=== PATIENT | male | born 1940 | race Caucasian/White ===

== ENCOUNTER 2024-05-25 09:59 | Outpatient (CLI) | payer OTHER, SELFPAY ==
--- NOTE | 2024-05-25 10:08 | USCV_ITS ---
Constantin Dawson Age: 84 Gender: M : 1940 Exam Date: 05/25/2024 10:11 Ordering Phys: Santi Shepard Technologist: ZACHARY Exam Location: [facility] [place] Indication: Vision loss, memory loss Risk Factors: Previous Vascular Surgery: Right Brachial BP: / Left Brachial BP: / Right Left Velocity (cm/s) Spectral Plaque Velocity (cm/s) Spectral Plaque Syst/Diast Broadening Syst/Diast Broadening 68.80/ 18.30 Prox CCA 101.90/ 18.30 75.90/ 21.80 Mid CCA 129.90/ 24.30 85.90/ 24.30 Distal CCA 113.30/ 24.20 82.90/ 28.30 Prox ICA 85.20 / 21.60 159.20/61.20 Mid ICA 75.40 / 26.70 164.70/43.00 Distal ICA 67.00 / 19.00 108.30 ECA 79.70 1.90 ICA/CCA 0.80 Antegrade Vertebral Antegrade 22.60/ 10.10 cm/s 38.00/ 11.50 cm/s Bi Subclavian Tri 94.70 92.80 FINDINGS Comparison: none available. Diffuse bilateral scattered calcified plaque and intimal thickening throughout the common carotid arteries and extending through the bifurcation. Mild elevation of right ICA velocity. Antegrade vertebal arteries. CONCLUSIONS Right ICA stenosis 50-69%. Left ICA stenosis < 50%. Dr. Bijal Vieyra DO (Electronically Signed) Final Date: 26 May 2024 07:45 S
== END 2024-05-25 10:00 | disposition home or self-care (01) ==
LOC: RAD 10:03
PROVIDERS: Visit Provider Family Medicine
DX: H53.121 Transient visual loss, right eye (principal); I65.23 Occlusion and stenosis of bilateral carotid arteries; I65.03 Occlusion and stenosis of bilateral vertebral arteries; E78.5 Hyperlipidemia, unspecified; I10 Essential (primary) hypertension
CPT/HCPCS: 93880

== ENCOUNTER 2025-01-04 16:05 | Observation (INO) | payer MEDICARE, OTHER, SELFPAY ==
[2025-01-04 16:15] VITALS: BP 102/57; PULSE 67; RESP 18; TEMP 36.6; O2SAT 99
--- NOTE | 2025-01-04 16:27 | XRR_ITS ---
PROCEDURE INFORMATION: Exam: XR Chest Exam date and time: 01/04/2025 4:35 PM Age: 84 years old Clinical indication: Other: Weakness TECHNIQUE: Imaging protocol: Radiologic exam of the chest. Views: 1 view. COMPARISON: No relevant prior studies available. FINDINGS: Tubes, catheters and devices: There is intact pacemaker hardware. Lungs: Unremarkable. No consolidation. Pleural spaces: Unremarkable. No pleural effusion. No pneumothorax. Heart/Mediastinum: Borderline cardiomegaly. Prior CABG. Bones/joints: There are sternal sutures. No acute findings. XR/XR chest 1V portable [id number] IMPRESSION: No acute findings.
--- NOTE | 2025-01-04 16:27 | ECG_ITS ---
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 Measurements Intervals [place] Rate: 84 P: 0 RI: 0 QRS: 261 QRSD: 201 T: 83 QT: 472 QTc: 560 Interpretive Statements ELECTRONIC VENTRICULAR PACEMAKER No previous ECG available for comparison Electronically Signed On 01-04-2025 22:23:38 CDT by Tyshawn Monreal M.D. [email or web address]
[2025-01-04 17:23] LABS: Basophils % 0.1 %; Eosinophils % 0.2 %; Hematocrit 27.4 % (37-53); Lymphocytes # 0.9 10^3/uL (0.8-4.8); Lymphocytes % 11.1 %; Mean Corpuscular HGB Conc 31.4 g/dL (30-55); Mean Corpuscular Hemoglobin 31.3 pg (27-33); Mean Corpuscular Volume 99.6 fl (82-101); Mean Platelet Volume 9.4 fL (7.4-10.4); Monocytes # 0.7 10^3/uL (0.2-0.9); Monocytes % 8.2 %; Neutrophils % 79.9 %; Nucleated Red Blood Cells % 0 %; Platelet Count 183 10^3/cmm (157-399); Red Blood Count 2.75 10^6/uL (3.85-5.65); Red Cell Distribution Width 14.1 % (12.1-15.1); White Blood Count 8.27 10^3/uL (3.29-11.43)
[2025-01-04 17:31] LABS: Alanine Aminotransferase 11 U/L (0-41); Alkaline Phosphatase 59 U/L (40-130); Anion Gap 14.2 (5-19); Aspartate Amino Transferase 19 U/L (0-40); Blood Urea Nitrogen 31 mg/dL (8-23); Calcium 9.1 mg/dL (8.5-10.5); Carbon Dioxide 23 mmol/L (22-29); Chloride 105 mmol/L (98-107); Creatinine Clr Calc Pharmacy 81.9889; Globulin 2.1 g/dL (1.3-4.6); Glucose 119 mg/dL (65-115); Lipase 33 U/L (13-60); Magnesium 2.2 mg/dL (1.7-2.3); Osmolality Calculated 294 mOsm/kg (285-295); Potassium 4.2 mmol/L (3.5-5.1); Sodium 138 mmol/L (136-145); Total Bilirubin 0.7 mg/dL (0.15-1.2); Total Protein 6.1 g/dL (6.6-8.7)
[2025-01-04 18:08] LABS: Add Urine Microscopic? NO
[2025-01-04 18:13] LABS: Bilirubin Urine Neg (Negative); Blood Urine Neg (Negative); Glucose Urine UA 4+ (Normal); Ketones Urine Negative (Negative); Leukocyte Esterase Urine Negative (Negative); Nitrate Urine Negative (Negative); Protein Urine Neg (Negative); Urine Appearance Clear (CLEAR); Urine Color Yellow (Yellow); Urobilinogen Urine Norm (Negative); pH Urine 5 (5-7)
[2025-01-04 18:14] LABS: Charge for UA Resulting for Rev
--- NOTE | 2025-01-04 19:10 | CTR_ITS ---
PROCEDURE INFORMATION: Exam: CT Head Without Contrast Exam date and time: 01/04/2025 7:38 PM Age: 84 years old Clinical indication: Other: General weakness TECHNIQUE: Imaging protocol: Computed tomography of the head without contrast. Radiation optimization: All CT scans at this facility use at least one of these dose optimization techniques: automated exposure control; mA and/or kV adjustment per patient size (includes targeted exams where dose is matched to clinical indication); or iterative reconstruction. COMPARISON: No relevant prior studies available. RADIATION DOSE METRICS: Total DLP (mGy-cm): 1180.68 FINDINGS: Brain: No intracranial hemorrhage. There is global parenchymal volume loss. Periventricular white matter hypoattenuation is nonspecific but most likely due to small vessel disease. No mass effect or midline shift. Chronic bilateral subinsular infarcts. Ill-defined focal hypoattenuation within the left paramedian magi (see for example series 4, image 14). Additional age-indeterminate hypoattenuation within the left bro radiata. Cerebral ventricles: Prominent ventricles likely secondary to volume loss. Paranasal sinuses: Visualized paranasal sinuses are clear. Mastoid air cells: The mastoid air cells are clear. Bones: The calvarium is intact. Soft tissues: Soft tissues are unremarkable as visualized. CT/CT head wo con* [id number] IMPRESSION: 1. Ill-defined focal hypoattenuation within the left paramedian magi. While this finding may be artifactual, it raises suspicion for a possible pontine infarct. Consider MRI of the brain if there is high clinical suspicion for acute ischemia. 2. Additional age-indeterminate hypoattenuation within the left bro radiata, which may represent chronic microvascular ischemic changes. Further characterization may be performed with above recommended MRI. 3. Chronic bilateral subinsular infarcts.
--- NOTE | 2025-01-04 19:10 | W.ED.WEAKNES ---
HPI - Weakness General: Chief complaint: Weakness Stated complaint: sent from dr walker, infection unsure Time Seen by Provider: 01/04/25 19:04 Source: patient Mode of arrival: ambulatory Limitations: no limitations History of Present Illness: 84-year-old male who states over last 3 days has been having increasing weakness. He states he just felt very fatigued today has been having a hard time walking. He has had subjective fevers at home denies any pain anywhere denies any vomiting or diarrhea denies any slurred speech or chest pain. Associated symptoms: Denies chest pain, chills, fever(s), headache(s), nausea or vomiting Review of Systems Const: Reports: fatigue and malaise; Denies: fever(s), chills, body aches or change in appetite ENMT: Denies: throat pain or dental pain Card: Denies: chest pain Resp: Denies: dyspnea GI: Denies: abdominal pain, nausea, vomiting or diarrhea Musc: Denies: neck pain or back pain Skin/Breast: Denies: rash Neuro: Denies: headache(s) PFSH ED PFSH: Social History Smoking and tobacco/nicotine status: never used tobacco/nicotine Physical Exam Const: COMMON NORMALS: patient oriented x3 HENMT: COMMON NORMALS: normocephalic and atraumatic HEAD & SCALP: normocephalic and atraumatic Eye: COMMON NORMALS: Equal, round and reactive pupils present and EOMs intact bilaterally PUPIL: Yes Equal, round and reactive pupils present Neck/C-Spine: COMMON NORMALS: full ROM and supple Chest: COMMONS NORMALS: normal inspection of the chest and normal palpation of entire chest wall Resp: COMMON NORMALS: normal respiratory effort, No retractions, No use of accessory muscles and clear to auscultation bilaterally AUSCULTATION: clear to auscultation bilaterally Cardio: COMMON NORMALS: regular rate, regular rhythm and No murmurs present (Cardio) RATE: regular rate RHYTHM: regular rhythm GI: COMMON NORMALS: Normal to inspection, nondistended, normoactive bowel sounds present, Soft to palpation, non-tender and no masses PALPATION: Yes Soft to palpation Extremity: COMMON NORMALS: normal to inspection and full ROM Neuro: COMMON NORMALS: patient oriented x3, moves all extremities and no focal motor deficits Psych: COMMON NORMALS: mental status grossly normal, Normal thought process present and cooperative THOUGHT PROCESS: Normal thought process present Skin: COMMON NORMALS: no rashes or lesions noted and no wounds GENERAL SKIN EXAM: no rashes or lesions noted Course Vital Signs: Vital signs: Vital Signs Temperature 97.8 F 01/04/25 16:15 Pulse Rate 67 01/04/25 16:15 Respiratory Rate 18 01/04/25 16:15 Blood Pressure 102/57 01/04/25 16:15 Pulse Oximetry 99 01/04/25 16:15 Oxygen Delivery Me thod Room Air 01/04/25 16:15 MDM - Weakness Medical Decision Making Patient presents here with weakness some difficulties walking. Head CT showed a possible subacute stroke no signs of infection I spoke to hospitalist will admit at this time for observation. Medical Records I reviewed the patient's medical records. Lab Data I reviewed the patient's lab results. 01/04/25 17:02 01/04/25 17:02 Radiology Impressions Chest X-Ray 01/04/25 16:27 IMPRESSION: No acute findings. Head CT 01/04/25 19:10 IMPRESSION: 1. Ill-defined focal hypoattenuation within the left paramedian magi. While this finding may be artifactual, it raises suspicion for a possible pontine infarct. Consider MRI of the brain if there is high clinical suspicion for acute ischemia. 2. Additional age-indeterminate hypoattenuation within the left bro radiata, which may represent chronic microvascular ischemic changes. Further characterization may be performed with above recommended MRI. 3. Chronic bilateral subinsular infarcts. ADDENDUM: 01/04/252014 COMMENT: THIS REPORT CONTAINS FINDINGS THAT MAY BE CRITICAL TO PATIENT CARE. The exam findings were verbally communicated by me to ROBSON BAUTISTA via telephone conference at 8:12 PM CDT on 01/04/2025. The findings were acknowledged and understood. Laboratory Results WBC 8.27 10^3/uL (3.29-11.43) 01/04/25 17:02 RBC 2.75 10^6/uL (3.85-5.65) L 01/04/25 17:02 Hgb 8.60 g/dL (11.27-16.99) L 01/04/25 17:02 Hct 27.4 % (37-53) L 01/04/25 17:02 MCV 99.6 fl (82-101) 01/04/25 17:02 MCH 31.3 pg (27-33) 01/04/25 17:02 MCHC 31.4 g/dL (30-55) 01/04/25 17:02 RDW 14.1 % (12.1-15.1) 01/04/25 17:02 Plt Count 183 10^3/cmm (157-399) 01/04/25 17:02 MPV 9.4 fL (7.4-10.4) 01/04/25 17:02 Neut % (Auto) 79.9 % 01/04/25 17:02 Lymph % (Auto) 11.1 % 01/04/25 17:02 Long % (Auto) 8.2 % 01/04/25 17:02 Eos % (Auto) 0.2 % 01/04/25 17:02 Baso % (Auto) 0.1 % 01/04/25 17:02 Neut # (Auto) 6.60 10^3/uL (1.8-7.7) 01/04/25 17:02 Lymph # (Auto) 0.9 10^3/uL (0.8-4.8) 01/04/25 17:02 Long # (Auto) 0.7 10^3/uL (0.2-0.9) 01/04/25 17:02 Eos # (Auto) 0.0 10^3/uL (0.0-0.8) 01/04/25 17:02 Baso # (Auto) 0.0 10^3/uL (0.0-0.1) 01/04/25 17:02 Nucleated RBC % (auto) 0 % 01/04/25 17:02 Nucleated RBCs # 0.0 /100WBC 01/04/25 17:02 Sodium 138 mmol/L (136-145) 01/04/25 17:02 Potassium 4.2 mmol/L (3.5-5.1) 01/04/25 17:02 Chloride 105 mmol/L (98-107) 01/04/25 17:02 Carbon Dioxide 23 mmol/L (22-29) 01/04/25 17:02 Anion Gap 14.2 (5-19) 01/04/25 17:02 BUN 31 mg/dL (8-23) H 01/04/25 17:02 Creatinine 0.8 mg/dL (0.7-1.2) 01/04/25 17:02 GFR Calculation Not Reportable 01/04/25 17:02 Glucose 119 mg/dL (65-115) H 01/04/25 17:02 Calculated Osmolality 294 mOsm/kg (285-295) 01/04/25 17:02 Lactic Acid 2.0 mmol/L (0.5-2.2) 01/04/25 17:02 Calcium 9.1 mg/dL (8.5-10.5) 01/04/25 17:02 Magnesium 2.2 mg/dL (1.7-2.3) 01/04/25 17:02 Total Bilirubin 0.7 mg/dL (0.15-1.2) 01/04/25 17:02 AST 19 U/L (0-40) 01/04/25 17:02 ALT 11 U/L (0-41) 01/04/25 17:02 Alkaline Phosphatase 59 U/L (40-130) 01/04/25 17:02 Total Protein 6.1 g/dL (6.6-8.7) L 01/04/25 17:02 Albumin 4.0 g/dL (3.5-5.2) 01/04/25 17:02 Globulin 2.1 g/dL (1.3-4.6) 01/04/25 17:02 Lipase 33 U/L (13-60) 01/04/25 17:02 TSH 8.59 uIU/mL (0.27-4.20) H 01/04/25 17:02 Urine Color Yellow (Yellow) 01/04/25 17:10 Urine Appearance Clear (CLEAR) 01/04/25 17:10 Urine pH 5 (5-7) 01/04/25 17:10 Ur Specific [place] 1.020 (1.005-1.030) 01/04/25 17:10 Urine Protein Neg (Negative) 01/04/25 17:10 Urine Glucose (UA) 4+ (Normal) H 01/04/25 17:10 Urine Ketones Negative (Negative) 01/04/25 17:10 Urine Blood Neg (Negative) 01/04/25 17:10 Urine Nitrate Negative (Negative) 01/04/25 17:10 Urine Bilirubin Neg (Negative) 01/04/25 17:10 Urine Urobilinogen Norm mg/dL (Negative) 01/04/25 17:10 Ur Leukocyte Esterase Negative (Negative) 01/04/25 17:10 Amorphous Sediment Not Reportable 01/04/25 17:10 All radiology interpretation(s) finalized by discharge Discharge Plan Discharge Patient Disposition: Admitted As Inpatient Clinical Impression: Generalized weakness Condition: Stable Coding Level of Care Code ED [place] for Chg Fwd Related Data Home Medications ?Medication ?Instructions ?Recorded ?Confirmed clopidogrel 75 mg tablet 75 mg PO DAILY 01/04/25 01/04/25 donepezil 10 mg tablet 10 mg PO DAILY 01/04/25 01/04/25 empagliflozin 10 mg tablet 10 mg PO DAILY 01/04/25 01/04/25 (Jardiance) ezetimibe 10 mg-simvastatin 80 mg 1 tab PO DAILY 01/04/25 01/04/25 tablet furosemide 40 mg tablet 40 mg PO DAILY 01/04/25 01/04/25 levothyroxine 75 mcg capsule 75 mcg PO DAILY 01/04/25 01/04/25 lisinopril 2.5 mg tablet 2.5 mg PO DAILY 01/04/25 01/04/25 metoprolol succinate 25 mg 25 mg PO DAILY 01/04/25 01/04/25 tablet,extended release 24 hr nystatin 100,000 unit/gram topical 1 applic topical DAILY 01/04/25 01/04/25 ointment spironolactone 25 mg tablet 25 mg PO DAILY 01/04/25 01/04/25 Allergies Allergy/AdvReac Type Severity Reaction Status Date / Time No Known Allergies Allergy Verified 01/04/25 16:18
[2025-01-04 19:42] LABS: Thyroid Stimulating Hormone 8.59 uIU/mL (0.27-4.20)
[2025-01-04 20:30] VITALS: BP 103/56; PULSE 77; RESP 18; O2SAT 100
[2025-01-04 21:00] VITALS: BP 97/53; PULSE 67; RESP 20; O2SAT 99
[2025-01-04 21:30] VITALS: BP 119/58; PULSE 86; O2SAT 100
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
[2025-01-04 22:13] VITALS: BP 128/94; PULSE 70; O2SAT 100
--- NOTE | 2025-01-04 22:45 | USCV_ITS ---
Constantin Dawson Age: 84 Gender: M : 1940 Exam Date: 01/04/2025 23:46 Ordering Phys: Dhiraj Field MD Technologist: APOLLO Exam Location: [facility] [place] Indication: cva history of CAD s/p CABG 1994, pacer, HTN BP: 115 / 52 HR: 58 Rhythm: Paced rhythm with atrial fibrillation Technical Quality: Adequate MEASUREMENTS (Male / Female) Normal Values 2D ECHO LV Diastolic Diameter PLAX 3.9 cm 4.2 - 5.9 / 3.9 - 5.3 cm IVS Diastolic Thickness 2.2 cm 0.6 - 1.0 / 0.6 - 0.9 cm IVS Systolic Thickness 2.5 cm LVPW Diastolic Thickness 2.0 cm 0.6 - 1.0 / 0.6 - 0.9 cm LVPW Systolic Thickness 2.4 cm LVOT Diameter 2.0 cm LV Ejection Fraction 2D Teich 61.2 % LV Ejection Fraction MOD 4C 60.2 % LV Ejection Fraction MOD 2C 44.4 % LV Ejection Fraction 2C AL 47.8 % LA Diameter 3.3 cm LA Sys Volume AL 176.7 cm cubed LA Sys Volume Index AL 75.8 cm cubed/m squared Aorta at Sinotubular Diameter 3.0 cm IVC Diameter 1.3 cm M-MODE LA Ao Ratio MM 1.4 AV Cusp Separation MM 1.8 cm DOPPLER AV Peak Velocity 153.0 cm/s LVOT Peak Velocity 79.0 cm/s AV Area Cont Eq vti 2.2 cm squared AV Area Cont Eq pk 1.7 cm squared MV Peak Velocity 121.0 cm/s MV Area PHT 2.8 cm squared Mitral E to A Ratio 0.0 TV Peak Velocity 314.0 cm/s TR Peak Velocity 322.0 cm/s TR Peak Gradient 41.5 mmHg TV Peak E Velocity 54.0 cm/s PV Peak Velocity 98.0 cm/s FINDINGS Left Ventricle Normal left ventricular size and systolic function, EF 60%.moderate left ventricular hypertrophy. No regional wall motion abnormalities. Right Ventricle Catheter/pacemaker wire in the right ventricular cavity. Right Atrium Catheter/pacemaker wire in the right atrial cavity. Left Atrium Mildly increased left atrial size. Mitral Valve Mild mitral valve regurgitation. Aortic Valve Thickened aortic valve. Tricuspid Valve [id number] tricuspid valve regurgitation. Estimated pulmonary artery peak systolic pressure 54 mmHg Pulmonic Valve No gross abnormalities noted Pericardium No pericardial effusion. Aorta Normal aortic annulus size. IVC Normal inferior vena cava. CONCLUSIONS Normal left ventricular size and systolic function, EF 60%.moderate left ventricular hypertrophy. No regional wall motion abnormalities. Kfuh-[id number]-emhqhzff tricuspid valve regurgitation. Estimated pulmonary artery peak systolic pressure 54 mmHg. Thickened aortic valve. Mild mitral valve regurgitation. Mildly increased left atrial size. There is no pericardial effusion. There are no intracardiac masses. No similar previous studies are available for comparison Dr Jeanmarie Schwab MD [facility] (Electronically Signed) Final Date: 05 January 2025 17:21 S
[2025-01-04 22:54] VITALS: BP 115/52; PULSE 82; RESP 17; TEMP 36.8; O2SAT 100; BMI 34.5
[2025-01-04 22:56] VITALS: BMI 32.5
[2025-01-04 23:21] LABS: Chol HDL Ratio 2.95 mg/dL (1.0-5.00); Cholesterol 124 mg/dL (0-200); HDL Cholesterol 42 mg/dL (60-100); LDL Cholesterol Calculated 65 mg/dL (50-129); LDL HDL Ratio 1.55 RATIO (0.00-3.22); Triglycerides 84 mg/dL (0-150)
[2025-01-04 23:23] LABS: Estmated Average Glucose 114; Hemoglobin A1C 5.6 % (4.0-6.0)
[2025-01-04 23:53] LABS: Vitamin B12 298 pg/mL (232-1245)
[2025-01-05 01:35] VITALS: BP 95/46; PULSE 61; RESP 16; TEMP 36.5; O2SAT 95
[2025-01-05 04:00] VITALS: BP 122/71; PULSE 72; RESP 18; TEMP 36.7; O2SAT 100
[2025-01-05 05:53] LABS: Basophils % 0.1 %; Eosinophils # 0.1 10^3/uL (0.0-0.8); Eosinophils % 0.9 %; Hematocrit 24.3 % (37-53); Lymphocytes # 1.1 10^3/uL (0.8-4.8); Lymphocytes % 15.7 %; Mean Corpuscular HGB Conc 31.7 g/dL (30-55); Mean Corpuscular Hemoglobin 31.2 pg (27-33); Mean Corpuscular Volume 98.4 fl (82-101); Mean Platelet Volume 9.5 fL (7.4-10.4); Monocytes # 0.7 10^3/uL (0.2-0.9); Monocytes % 10.6 %; Neutrophils # 4.99 10^3/uL (1.8-7.7); Neutrophils % 72.4 %; Nucleated Red Blood Cells % 0 %; Platelet Count 166 10^3/cmm (157-399); Red Blood Count 2.47 10^6/uL (3.85-5.65); White Blood Count 6.89 10^3/uL (3.29-11.43)
[2025-01-05 05:59] VITALS: BMI 32.5
[2025-01-05 06:14] LABS: Anion Gap 15.1 (5-19); Blood Urea Nitrogen 31 mg/dL (8-23); Calcium 8.8 mg/dL (8.5-10.5); Carbon Dioxide 23 mmol/L (22-29); Chloride 104 mmol/L (98-107); Creatinine Clr Calc Pharmacy 81.9889; Glucose 109 mg/dL (65-115); Magnesium 2.2 mg/dL (1.7-2.3); Osmolality Calculated 293 mOsm/kg (285-295); Potassium 4.1 mmol/L (3.5-5.1); Sodium 138 mmol/L (136-145)
[2025-01-05] MEDS: levothyroxine 100 mcg Tablet PO (06:23)
[2025-01-05 07:04] LABS: Glucose Point of Care 129 mg/dL (70-110)
--- NOTE | 2025-01-05 07:48 | PC.PHAR ---
Pts' daughter Rupa sets his medications up weekly. Pt states he has not taken medications in the last couple days. Saturday was the last time he took any daily meds.
[2025-01-05 08:00] VITALS: BP 101/53; PULSE 71; RESP 18; TEMP 36.4; O2SAT 97
[2025-01-05] MEDS: aspirin 81 mg EC Tablet PO (09:01)
[2025-01-05] MEDS: atorvastatin 40 mg Tablet 80 MG PO (09:01)
[2025-01-05] MEDS: sennosides-docusate Tablet 1 TAB PO (09:01)
[2025-01-05] MEDS: clopidogrel 75 mg Tablet PO (09:01)
[2025-01-05] MEDS: donepezil 5 MG Tablet 10 MG PO (09:01)
--- NOTE | 2025-01-05 09:01 | PC.CHAP ---
Pastoral Care Encounter/Spiritual Assessment Type of Contact [] Declined feather trimmer visit [] Patient/Family/Request visit [] Outpatient visit [] Follow-up visit [] Physician referral [] Code/Alert [] Routine visit [] Staff referral [] Actively dying [x] Patient sleeping [] Family support [] [] Out of room [] Palliative care [] [] Receiving care in room [] Pre-surgical visit [] Trauma [] Long length of stay [] ICU visit [] Other: Relational/Emotional Strength [] Patient feels connected with others/family/visitors/staff [] Distress [] Loneliness/isolation [] Abandonment Spirituality of Patient [] Person of Brit [] Attends Sabianist of their Brit [] Believes in Prayer [] Reads Bible or Zoroastrianism materials [] There are Spiritual issues to be addressed Navigation Officer Interventions [] Prayer [] Active listening [] Non-anxious presence [] Spiritual/emotional support [] Crisis/trauma care [] Spiritual counseling [] Bereavement support [] Provided bereavement packet [] Provided Bible/devotional materials [] Provided toy/stuffed animal, coloring book to patient or family member [] Provided Communion [] Anointing/[place] [] Salvation [] Completed spiritual assessment [] Other: Impact on Illness or Injury [] Angry [] Fearful [] Anxious [] Often cries [] Exhaustion [] Unable to work [] Unable to attend cheondoism [] Unable to walk/stand [] Unable to read [] Unable to drive [] Unable to eat/drink [] Unable to sleep [] Unable to be with family [] Patient intubated [] Other: Summary Time spent with patient
[2025-01-05 09:24] LABS: Basophils % 0.3 %; Eosinophils # 0.1 10^3/uL (0.0-0.8); Eosinophils % 0.7 %; Hematocrit 26.8 % (37-53); Lymphocytes # 1.1 10^3/uL (0.8-4.8); Lymphocytes % 15.1 %; Mean Corpuscular HGB Conc 31.7 g/dL (30-55); Mean Corpuscular Hemoglobin 31.6 pg (27-33); Mean Corpuscular Volume 99.6 fl (82-101); Mean Platelet Volume 9.6 fL (7.4-10.4); Monocytes # 0.9 10^3/uL (0.2-0.9); Monocytes % 11.4 %; Neutrophils # 5.47 10^3/uL (1.8-7.7); Neutrophils % 72.1 %; Nucleated Red Blood Cells % 0 %; Platelet Count 183 10^3/cmm (157-399); Red Blood Count 2.69 10^6/uL (3.85-5.65); Red Cell Distribution Width 14.2 % (12.1-15.1); White Blood Count 7.57 10^3/uL (3.29-11.43)
--- NOTE | 2025-01-05 10:15 | PC.NURSE ---
cost coordinator rounds @ 5110- patient states symptoms have resolved and would like to go home, states he doesn't think he had a stroke.
[2025-01-05 11:08] VITALS: BP 103/53; PULSE 66; RESP 20; TEMP 36.5; O2SAT 94
--- NOTE | 2025-01-05 12:57 | P.PN_ITS ---
Subjective 2 Subjective: seen today pt resting in bed says he feels better daughter at bedside Vitals/I&O/Wt Last Vital Signs Temp 97.7 F 01/05/25 11:08 Pulse 66 01/05/25 11:08 Resp 20 H 01/05/25 11:08 BP 103/53 01/05/25 11:08 Pulse Ox 94 01/05/25 11:08 O2 Del Method Room Air 01/05/25 11:08 01/04/25 01/05/25 01/05/25 22:59 06:59 14:59 Intake Total 120 / 120 240 / 240 Balance 120 / 120 240 / 240 Weight last 48 hrs Weight 105.687 kg Weight 105.687 kg Weight 112.309 kg Weight 105.687 kg Physical Exam 2 Narrative: NIH 0 GCS 15 Nonfocal neuroexam Lower extremity no significant edema Distended nontender abdomen Hemodynamically stable Currently room air AO x 4 Daughter at the bedside Pacemaker in place S1, S2 No active clinical distress Able to follow commands Data 01/05/25 08:59 01/05/25 04:52 A&P Assessment and plan (1) CVA (cerebral vascular accident): (2) Generalized weakness: (3) Hx of CABG: (4) Carotid artery disease: (5) HTN (hypertension): Plan Lower extremity weakness NIH 0 at the time of my evaluation Hyperdense sign present on CT head Rule out stroke with MRI head if compatible with his pacemaker Will add aspirin and continue Plavix for at least 20 days then patient may resume his Plavix regimen Add atorvastatin 80 mg Will request echo with bubble study and head MRI Check hemoglobin A1c and lipid panel PT OT and ST I will let him eat he does not have any facial droop or dysarthria He takes Jardiance for underlying CHF he does not have any diagnosis of diabetes Full code Consistent carb diet Patient lives in [facility] and follows up with [facility] 01/05/2025 1. Ill-defined focal hypoattenuation within the left paramedian magi. While this finding may be artifactual, it raises suspicion for a possible pontine infarct. Consider MRI of the brain if there is high clinical suspicion for acute ischemia. 2. Additional age-indeterminate hypoattenuation within the left bro radiata, which may represent chronic microvascular ischemic changes. Further characterization may be performed with above recommended MRI. 3. Chronic bilateral subinsular infarcts. continue asa, plavix echo pending carotid doppler recently done at [facility], pre-lamb results 59-69% right ica pt out of window for tpa, symptoms started saturday f/u with neuro outpatient, discussed with neuro over the phone check hba1c, lipid panel pt/ot PDMP PDMP Reviewed: Not Reviewed Attestations 2 Medical Necessity Statement*: stroke workup Diagnoses CVA (cerebral vascular accident) I63.9 Generalized weakness R53.1 Hx of CABG Z95.1 Carotid artery disease I77.9 HTN (hypertension) I10
[2025-01-05 16:00] VITALS: BP 95/53; PULSE 59; RESP 19; TEMP 36.7; O2SAT 95
[2025-01-05] MEDS: enoxaparin 40 mg/0.4 mL Syringe SUBCUT (16:18)
[2025-01-05 21:41] VITALS: BP 105/65; PULSE 67; RESP 17; TEMP 37.2; O2SAT 95
[2025-01-06 00:49] VITALS: BP 107/58; PULSE 167; RESP 16; TEMP 36.8; O2SAT 100
[2025-01-06 04:35] VITALS: BP 133/77; PULSE 52; RESP 16; TEMP 36.6; O2SAT 96
[2025-01-06 04:38] VITALS: BMI 32.5
[2025-01-06 05:45] LABS: Basophils % 0.3 %; Eosinophils # 0.1 10^3/uL (0.0-0.8); Hematocrit 26.6 % (37-53); Lymphocytes # 1.2 10^3/uL (0.8-4.8); Lymphocytes % 17.7 %; Mean Corpuscular HGB Conc 31.6 g/dL (30-55); Mean Corpuscular Hemoglobin 30.3 pg (27-33); Mean Platelet Volume 10.2 fL (7.4-10.4); Monocytes # 0.8 10^3/uL (0.2-0.9); Monocytes % 11.4 %; Neutrophils # 4.83 10^3/uL (1.8-7.7); Neutrophils % 69.3 %; Nucleated Red Blood Cells % 0 %; Platelet Count 183 10^3/cmm (157-399); Red Blood Count 2.77 10^6/uL (3.85-5.65); White Blood Count 6.96 10^3/uL (3.29-11.43)
[2025-01-06 06:06] LABS: Anion Gap 16.1 (5-19); Blood Urea Nitrogen 34 mg/dL (8-23); Calcium 8.8 mg/dL (8.5-10.5); Carbon Dioxide 21 mmol/L (22-29); Chloride 101 mmol/L (98-107); Glucose 124 mg/dL (65-115); Magnesium 2.3 mg/dL (1.7-2.3); Osmolality Calculated 287 mOsm/kg (285-295); Potassium 4.1 mmol/L (3.5-5.1); Sodium 134 mmol/L (136-145)
[2025-01-06] MEDS: levothyroxine 100 mcg Tablet PO (06:09)
[2025-01-06 07:29] VITALS: BP 111/61; PULSE 71; RESP 15; TEMP 36.6; O2SAT 93
[2025-01-06] MEDS: spironolactone 25 mg Tablet PO (08:49)
[2025-01-06] MEDS: metoprolol succinate ER (24 HR) 25 mg Tablet PO (08:50)
[2025-01-06] MEDS: donepezil 5 MG Tablet 10 MG PO (08:50)
[2025-01-06] MEDS: clopidogrel 75 mg Tablet PO (08:50)
[2025-01-06] MEDS: aspirin 81 mg EC Tablet PO (08:50)
[2025-01-06] MEDS: atorvastatin 40 mg Tablet 80 MG PO (08:50)
[2025-01-06] MEDS: sennosides-docusate Tablet 1 TAB PO (08:51)
--- NOTE | 2025-01-06 09:31 | PC.CHAP ---
Pastoral Care Encounter/Spiritual Assessment Type of Contact [] Declined inventory specialist manager visit [] Patient/Family/Request visit [] Outpatient visit [] Follow-up visit [] Physician referral [] Code/Alert [] Routine visit [] Staff referral [] Actively dying [] Patient sleeping [] Family support [] [] Out of room [] Palliative care [] [x] Receiving care in room [] Pre-surgical visit [] Trauma [] Long length of stay [] ICU visit [] Other: Relational/Emotional Strength [] Patient feels connected with others/family/visitors/staff [] Distress [] Loneliness/isolation [] Abandonment Spirituality of Patient [] Person of Brit [] Attends Mandaen of their Brit [] Believes in Prayer [] Reads Bible or Pentecostalism materials [] There are Spiritual issues to be addressed Navy Material Inspector Interventions [] Prayer [] Active listening [] Non-anxious presence [] Spiritual/emotional support [] Crisis/trauma care [] Spiritual counseling [] Bereavement support [] Provided bereavement packet [] Provided Bible/devotional materials [] Provided toy/stuffed animal, coloring book to patient or family member [] Provided Communion [] Anointing/[place] [] Salvation [] Completed spiritual assessment [] Other: Impact on Illness or Injury [] Angry [] Fearful [] Anxious [] Often cries [] Exhaustion [] Unable to work [] Unable to attend congregation [] Unable to walk/stand [] Unable to read [] Unable to drive [] Unable to eat/drink [] Unable to sleep [] Unable to be with family [] Patient intubated [] Other: Summary Time spent with patient
--- NOTE | 2025-01-06 09:42 | PC.NURSE ---
retail marketing coordinator rounds @ [id number]- gave patient and family stroke education book
[2025-01-06 10:57] LABS: Glucose Point of Care 120 mg/dL (70-110)
[2025-01-06 11:00] VITALS: BP 111/64; PULSE 67; RESP 16; TEMP 37.1; O2SAT 93
--- NOTE | 2025-01-06 11:15 | P.DS_ITS ---
Discharge Providers Date of Admission: 01/04/25 21:03 Date of Discharge: January 06, 2025 Attending Provider at Admission: Dhiraj Field MD Attending Provider at Discharge: Lashell Benites MD Primary Care Provider: Wolf Shepard DO Diagnoses at Discharge Discharge Diagnosis (1) CVA (cerebral vascular accident): Status: Acute (2) Generalized weakness: Status: Inactive (3) Hx of CABG: Status: Acute (4) Carotid artery disease: Status: Acute (5) HTN (hypertension): Status: Acute Reason for Visit Reason for Visit: sent from dr walker, infection unsure Hospital Course Hospital Course Patient has a history of carotid artery disease 59 to 69% stenosis on right ICA, history of non-Hodgkin's lymphoma currently in remission, questionable atrial fibrillation, pacemaker, cervical radiculitis who presented to the hospital for generalized weakness. Symptoms started on Saturday. Patient was out of the window for TNKase at time of presentation. NIH 0 at time of presentation. Neuroexam nonfocal. Echo completed. CT head showed ill-defined focal hypoattenuation within left paramedial magi with suspicion for possible pontine infarct. MRI brain was ordered however could not be performed secondary to patient having a pacemaker. CT head also showed chronic bilateral subinsular infarcts. Discussed with neurology on-call with Dr. Draper. Patient recommended to continue on aspirin Plavix atorvastatin at this time. Patient recommended to follow-up with vascular surgery in [place] who is who he is already established with. He was also given referral to neurology in [place] as he wants to follow-up with [facility]. Daughter present at bedside. Patient did well with physical therapy and was able to walk 60 feet. Patient's blood pressure has been on lower side. I will stop spironolactone and lisinopril. Patient may continue Imdur Lasix and metoprolol succinate at this time and to keep an eye on blood pressure at home. Patient and family counseled. We will set up an event monitor. During hospitalization he has been in sinus rhythm however there is a note of atrial fibrillation in his patient portal from [facility]. He will follow-up with cardiology after event monitor. Family and patient in agreement. We will also set up walker for patient at discharge. Physical Exam Narrative: NIH 0 GCS 15 Nonfocal neuroexam Lower extremity no significant edema Distended nontender abdomen Hemodynamically stable Currently room air AO x 4 Daughter at the bedside Pacemaker in place S1, S2 No active clinical distress Able to follow commands Discharge Data Studies Completed and Pending Completed Studies During Hospitalization Category Date Time Status CT head wo con* [id number] Stat Cat Scan 01/04/25 19:10 Completed XR chest 1V portable [id number] Stat Exams 01/04/25 16:27 Completed CV. echo lmt wo/w bubble [id number] Routine Ultrasound 01/04/25 22:45 Completed Radiology Impressions Chest X-Ray 01/04/25 16:27 IMPRESSION: No acute findings. Head CT 01/04/25 19:10 IMPRESSION: 1. Ill-defined focal hypoattenuation within the left paramedian magi. While this finding may be artifactual, it raises suspicion for a possible pontine infarct. Consider MRI of the brain if there is high clinical suspicion for acute ischemia. 2. Additional age-indeterminate hypoattenuation within the left bro radiata, which may represent chronic microvascular ischemic changes. Further characterization may be performed with above recommended MRI. 3. Chronic bilateral subinsular infarcts. ADDENDUM: 01/04/252014 COMMENT: THIS REPORT CONTAINS FINDINGS THAT MAY BE CRITICAL TO PATIENT CARE. The exam findings were verbally communicated by me to ROBSON BAUTISTA via telephone conference at 8:12 PM CDT on 01/04/2025. The findings were acknowledged and understood. Laboratory Results WBC 6.96 10^3/uL (3.29-11.43) 01/06/25 04:36 RBC 2.77 10^6/uL (3.85-5.65) L 01/06/25 04:36 Hgb 8.40 g/dL (11.27-16.99) L 01/06/25 04:36 Hct 26.6 % (37-53) L 01/06/25 04:36 MCV 96.0 fl (82-101) 01/06/25 04:36 MCH 30.3 pg (27-33) 01/06/25 04:36 MCHC 31.6 g/dL (30-55) 01/06/25 04:36 RDW 14.0 % (12.1-15.1) 01/06/25 04:36 Plt Count 183 10^3/cmm (157-399) 01/06/25 04:36 MPV 10.2 fL (7.4-10.4) 01/06/25 04:36 Neut % (Auto) 69.3 % 01/06/25 04:36 Lymph % (Auto) 17.7 % 01/06/25 04:36 Gage % (Auto) 11.4 % 01/06/25 04:36 Eos % (Auto) 1.0 % 01/06/25 04:36 Baso % (Auto) 0.3 % 01/06/25 04:36 Neut # (Auto) 4.83 10^3/uL (1.8-7.7) 01/06/25 04:36 Lymph # (Auto) 1.2 10^3/uL (0.8-4.8) 01/06/25 04:36 Gage # (Auto) 0.8 10^3/uL (0.2-0.9) 01/06/25 04:36 Eos # (Auto) 0.1 10^3/uL (0.0-0.8) 01/06/25 04:36 Baso # (Auto) 0.0 10^3/uL (0.0-0.1) 01/06/25 04:36 Nucleated RBC % (auto) 0 % 01/06/25 04:36 Nucleated RBCs # 0.0 /100WBC 01/06/25 04:36 Sodium 134 mmol/L (136-145) L 01/06/25 04:36 Potassium 4.1 mmol/L (3.5-5.1) 01/06/25 04:36 Chloride 101 mmol/L (98-107) 01/06/25 04:36 Carbon Dioxide 21 mmol/L (22-29) L 01/06/25 04:36 Anion Gap 16.1 (5-19) 01/06/25 04:36 BUN 34 mg/dL (8-23) H 01/06/25 04:36 Creatinine 0.9 mg/dL (0.7-1.2) 01/06/25 04:36 GFR Calculation Not Reportable 01/06/25 04:36 Glucose 124 mg/dL (65-115) H 01/06/25 04:36 POC Glucose 120 mg/dL (70-110) H 01/06/25 10:33 Estimat Average Glucose 114 01/04/25 17:02 Hemoglobin A1c 5.6 % (4.0-6.0) 01/04/25 17:02 Calculated Osmolality 287 mOsm/kg (285-295) 01/06/25 04:36 Lactic Acid 2.0 mmol/L (0.5-2.2) 01/04/25 17:02 Calcium 8.8 mg/dL (8.5-10.5) 01/06/25 04:36 Magnesium 2.3 mg/dL (1.7-2.3) 01/06/25 04:36 Total Bilirubin 0.7 mg/dL (0.15-1.2) 01/04/25 17:02 AST 19 U/L (0-40) 01/04/25 17:02 ALT 11 U/L (0-41) 01/04/25 17:02 Alkaline Phosphatase 59 U/L (40-130) 01/04/25 17:02 Total Protein 6.1 g/dL (6.6-8.7) L 01/04/25 17:02 Albumin 4.0 g/dL (3.5-5.2) 01/04/25 17:02 Globulin 2.1 g/dL (1.3-4.6) 01/04/25 17:02 Triglycerides 84 mg/dL (0-150) 01/04/25 17:02 Cholesterol 124 mg/dL (0-200) 01/04/25 17:02 LDL Cholesterol, Calc 65 mg/dL (50-129) 01/04/25 17:02 HDL Cholesterol 42 mg/dL (60-100) L 01/04/25 17:02 LDL/HDL Ratio 1.55 RATIO (0.00-3.22) 01/04/25 17:02 Cholesterol/HDL Ratio 2.95 mg/dL (1.0-5.00) 01/04/25 17:02 Lipase 33 U/L (13-60) 01/04/25 17:02 Vitamin B12 298 pg/mL (232-1245) 01/04/25 17:02 TSH 8.59 uIU/mL (0.27-4.20) H 01/04/25 17:02 Urine Color Yellow (Yellow) 01/04/25 17:10 Urine Appearance Clear (CLEAR) 01/04/25 17:10 Urine pH 5 (5-7) 01/04/25 17:10 Ur Specific [place] 1.020 (1.005-1.030) 01/04/25 17:10 Urine Protein Neg (Negative) 01/04/25 17:10 Urine Glucose (UA) 4+ (Normal) H 01/04/25 17:10 Urine Ketones Negative (Negative) 01/04/25 17:10 Urine Blood Neg (Negative) 01/04/25 17:10 Urine Nitrate Negative (Negative) 01/04/25 17:10 Urine Bilirubin Neg (Negative) 01/04/25 17:10 Urine Urobilinogen Norm mg/dL (Negative) 01/04/25 17:10 Ur Leukocyte Esterase Negative (Negative) 01/04/25 17:10 Amorphous Sediment Not Reportable 01/04/25 17:10 Vitals Last Vital Signs Temp 97.9 F 01/06/25 07:29 Pulse 71 01/06/25 07:29 Resp 15 01/06/25 07:29 BP 111/61 01/06/25 07:29 Pulse Ox 93 01/06/25 07:29 O2 Del Method Room Air 01/06/25 07:29 Discharge Plan Discharge Patient Disposition: Home Health Service Condition: Stable Prescriptions: New atorvastatin 40 mg Tablet 80 mg PO DAILY Qty: 30 0RF aspirin 81 mg Tablet,Delayed Release (Dr/Ec) 81 mg PO DAILY Qty: 30 0RF levothyroxine [Levoxyl] 100 mcg Tablet 100 mcg PO ACBREAKFAST Qty: 30 0RF Continued nystatin 100,000 unit/gram ointment 1 applic topical DAILY PRN (Reason: Skin Irritation) donepezil 10 mg tablet 10 mg PO DAILY furosemide 40 mg tablet 40 mg PO DAILY metoprolol succinate 25 mg tablet extended release 24 hr 25 mg PO DAILY clopidogrel 75 mg tablet 75 mg PO DAILY Jardiance 10 mg tablet 10 mg PO DAILY isosorbide mononitrate 30 mg tablet extended release 24 hr 30 mg PO QAM nitroglycerin 0.4 mg tablet, sublingual See Rx Instructions .ROUTE .COMPLEX Rx Instructions: PLACE 1 TABLET UNDER TONGUE EVERY 5 MINUTES NEEDED FOR CHEST PAIN. Held spironolactone 25 mg tablet 25 mg PO DAILY Hold Instructions: see pcp Discontinued ezetimibe-simvastatin 10-80 mg tablet 1 tab PO DAILY lisinopril 2.5 mg tablet 2.5 mg PO DAILY levothyroxine 75 mcg tablet 75 mcg PO QAM Discharge Orders: Discharge Order (Routine); Ordered 01/06/25 Ordered By: Lashell Benites Other Ambulatory Orders: DME: Walker (Order) Location: None Selected Ordered By: Lashell Benites MCT/Event Monitor 21 Days (Routine) Timeframe: 1 Day Facility: [facility] [place] - Location: Radiology Ordered By: Lashell Benites [place] [facility] [place] [facility] [Outside] Kushal Purcell [Referring] - 4-7 days (stroke We have notified your physician's clinic of the need for a follow-up appointment to be scheduled. If you have not heard from them within the next 2 business days, please call them directly. ) Luma Mera FNP [Referring] - 4-7 days (We have notified your physician's clinic of the need for a follow-up appointment to be scheduled. If you have not heard from them within the next 2 business days, please call them directly. ) Wolf Shepard DO [Primary Care Provider] - 01/11/25 2:00 pm () Discharge Diet: Cardiac Discharge Activity: Use walker/crutches as instructed and As per PT/OT instr uctions Patient Instructions: Levothyroxine (By mouth), Aspirin (By mouth), Atorvastatin (By mouth), Hypertension (GEN), Opioid Safety, Stroke Stoplight Activity Restrictions/Additional Instructions: You have an appointment scheduled with [facility] for a 21 day cardiac event monitor. January 11, 2025 @ 1pm. Please arrive 15 minutes prior to appointment to complete any paperwork you may need. Discharge Attestations Time Spent in Discharge Care*: greater than 30 min Quality Metrics Clinical Quality Measures [ No reported AMI, CVA or VTE this stay] Coding Level of Care Code Acute Code for Chg Fwd Diagnoses CVA (cerebral vascular accident) I63.9 Generalized weakness R53.1 Hx of CABG Z95.1 Carotid artery disease I77.9 HTN (hypertension) I10
== END 2025-01-06 13:10 | disposition home health service (06) ==
LOC: ER 20:31 → MEDSURG 21:06
PROVIDERS: Admitting Provider Internal Medicine; Emergency Provider Emergency Medicine; PCP Family Medicine; Visit Provider Internal Medicine
DX: I63.9 Cerebral infarction, unspecified (principal); R29.700 NIHSS score 0; I77.9 Disorder of arteries and arterioles, unspecified; I10 Essential (primary) hypertension; Z95.1 Presence of aortocoronary bypass graft; Z95.0 Presence of cardiac pacemaker; I63.89 Other cerebral infarction; I25.10 Atherosclerotic heart disease of native coronary artery without angina pectoris; Z85.72 Personal history of non-Hodgkin lymphomas
CPT/HCPCS: 36415; 36416; 70450; 71045; 80048; 80053; 80061; 81000; 81003; 82607; 82962; 83036; 83605; 83690; 83735; 84443; 85025; 87086; 87400; 87426; 92523; 93005; 96372; 97110; 97161; 97165; 99285; C8924; G0378; J1650; J9999

== ENCOUNTER 2025-01-11 09:09 | Emergency (ER) | payer MEDICARE, OTHER, SELFPAY ==
[2025-01-11 09:09] VITALS: BP 139/62; PULSE 73; RESP 17; TEMP 36.6; O2SAT 95; BMI 32.5
--- NOTE | 2025-01-11 09:12 | XRR_ITS ---
PROCEDURE INFORMATION: Exam: XR Chest Exam date and time: 01/11/2025 9:38 AM Age: 84 years old Clinical indication: Cough and dyspnea; Prior surgery; Surgery date: 6+ months; Surgery type: Heart, pacemaker, HX of melanoma, nh lymphoma; Generalized weakness; Additional info: Dyspnea/cough TECHNIQUE: Imaging protocol: Radiologic exam of the chest. Views: 1 view. COMPARISON: CR (CHEST, ) 01/04/2025 4:35 PM FINDINGS: Tubes, catheters and devices: Left chest pacemaker device is demonstrated. Lungs: Mild bilateral perihilar and basilar interstitial lung opacities, suggesting pulmonary edema versus infiltrates. No consolidation. Pleural spaces: Small volume bilateral pleural effusions. Pleural effusion appears larger on the right side. No pneumothorax identified. Heart/Mediastinum: Post surgical changes overlie the mediastinum, suggesting previous CABG. Sternotomy wires, hardware are present. Cardiac silhouette appears moderately enlarged. Vasculature: Moderate to severe atherosclerotic calcification demonstrated within the aorta. Tortuous and ectatic aorta is demonstrated. Bones/joints: Sternotomy wires, hardware is demonstrated. Generalized bony degenerative changes. XR/XR chest 1V portable [id number] IMPRESSION: 1. Moderate enlarged cardiac silhouette. 2. Mild interstitial pulmonary edema versus infiltrates. 3. Small bilateral pleural effusions. 4. Degenerative and postsurgical changes are demonstrated, as described above.
--- NOTE | 2025-01-11 09:14 | ECG_ITS ---
[employer] Date: 2025-01-11 Pat Name: Constantin Dawson Department: Room: Gender: Male Home Comfort Advisor: : 1940 Requested By: Adal Auguste Order Number: [id number] Aristeo MD: Jeanmarie Schwab M.D. Measurements Intervals [place] Rate: 68 P: 0 NJ: 0 QRS: 147 QRSD: 184 T: -39 QT: 501 QTc: 536 Interpretive Statements UNCERTAIN IRREGULAR RHYTHM ELECTRONIC VENTRICULAR PACEMAKER -- CONTOUR ANALYSIS BASED ON INTRINSIC RHYTHM INTRAVENTRICULAR CONDUCTION DELAY [130+ ms QRS DURATION] POSSIBLE RIGHT VENTRICULAR HYPERTROPHY [SOME/ALL OF: PROMINENT R IN V1, LATE TRANSITION, RAD, STEPHAN, SSS] LATERAL MYOCARDIAL INFARCTION , PROBABLY RECENT [40+ ms Q WAVE AND/OR ST/T ABNORMALITY IN I/aVL/V5/V6] ACUTE VT Compared to ECG 01/04/2025 17:14:40 Intraventricular conduction delay now present Myocardial infarct finding now present Electronically Signed On 01-11-2025 21:34:08 CDT by Jeanmarie Schwab M.D. [email or web address]
--- NOTE | 2025-01-11 09:14 | W.ED.WEAKNES ---
HPI - Weakness General: Chief complaint: Weakness Stated complaint: gen weakness - flu like symptoms Time Seen by Provider: 01/11/25 09:12 History of Present Illness: 84-year-old male presents emergency room via EMS complaining of flulike symptoms generally feeling weak. Patient had a stroke 1 week ago. This morning he was getting out of the shower became very weak felt like he was going to pass out he never did lose consciousness. He is not having any chest pain at all. He denies any shortness of breath denies any abdominal pain. Was hospitalized on 01/04 - 01/[address] done at that time showed a focal area of hypoattenuation in the left paramedian magi suspicious for acute ischemia Associated symptoms: Denies chest pain, chills, dysuria or fever(s) Review of Systems Const: Reports: fatigue and malaise; Denies: fever(s) or chills Card: Denies: chest pain Resp: Denies: dyspnea GI: Denies: abdominal pain : Denies: dysuria, urinary frequency or urinary urgency Musc: Denies: neck pain or back pain Skin/Breast: Denies: rash PFSH ED PFSH: Medical History Pacemaker Melanoma Non Hodgkin's lymphoma Degenerative disc disease Atrial fibrillation Cervical radiculitis Generalized weakness HTN (hypertension) Social History Smoking and tobacco/nicotine status: never used tobacco/nicotine Physical Exam Const: ORIENTATION/CONSCIOUSNESS: Yes awake, Yes oriented to person, Yes oriented to place and Yes oriented to time HENMT: COMMON NORMALS: normocephalic, atraumatic and hearing grossly normal bilaterally HEAD & SCALP: normocephalic and atraumatic Resp: COMMON NORMALS: normal respiratory effort, No retractions, No use of accessory muscles and clear to auscultation bilaterally AUSCULTATION: clear to auscultation bilaterally Cardio: COMMON NORMALS: regular rate, regular rhythm and No murmurs present (Cardio) RATE: regular rate RHYTHM: regular rhythm GI: COMMON NORMALS: Soft to palpation and No hepatosplenomegaly present AUSCULTATION: Yes normoactive bowel sounds PALPATION: Yes Soft to palpation, No Tenderness to palpation present (GI), No Guarding due to palpation present (GI) and Yes No hepatosplenomegaly present Extremity: COMMON NORMALS: normal to inspection, capillary refill normal, no clubbing, cyanosis or edema, no calf tenderness and no pedal edema Neuro: SENSORIUM/ORIENTATION: Yes oriented to person, Yes oriented to place and Yes oriented to time Skin: COMMON NORMALS: no rashes or lesions noted GENERAL SKIN EXAM: no rashes or lesions noted Course Vital Signs: Vital signs: Vital Signs Temperature 97.9 F 01/11/25 09:09 Pulse Rate 73 01/11/25 13:06 Respiratory Rate 17 01/11/25 09:09 Blood Pressure 144/75 01/11/25 13:06 Pulse Oximetry 98 01/11/25 13:06 Oxygen Delivery Me thod Room Air 01/11/25 11:30 MDM - Weakness Medical Decision Making With symptoms are resolved. Suspect combination of his stroke his medications. His isosorbide mononitrate and his metoprolol along with a hot shower and his diuretics precipitated the episode he had today. He has been stable since he arrived here he is not in any further symptoms he does not have any new neurologic findings on exam. He was able to ambulate with a walker which is his baseline since his discharge for the stroke. Discussed findings with the patient. He is having no new symptoms he has some reexacerbation of the old symptoms but those have mostly resolved by the time the workup was completed. Family is asking about potential admission to the hospital we do not have any acute findings I did ask case management to see him we gave him options of admission to the longterm for rehab but he is currently been getting it as an outpatient. Ultimately they decided against this because it would not be covered by insurance. Continue his current medications. Patient's anemia is chronic, slightly improved from last hemoglobin at the time of discharge Differential Diagnosis Likely anemia, hypoglycemia and dehydration (CVA) Medical Records I reviewed the patient's medical records. Lab Data I reviewed the patient's lab results. 01/11/25 08:43 01/11/25 08:43 Radiology Impressions Chest X-Ray 01/11/25 09:12 IMPRESSION: 1. Moderate enlarged cardiac silhouette. 2. Mild interstitial pulmonary edema versus infiltrates. 3. Small bilateral pleural effusions. 4. Degenerative and postsurgical changes are demonstrated, as described above. Laboratory Results WBC 9.55 10^3/uL (3.29-11.43) 01/11/25 08:43 RBC 2.97 10^6/uL (3.85-5.65) L 01/11/25 08:43 Hgb 8.90 g/dL (11.27-16.99) L 01/11/25 08:43 Hct 28.1 % (37-53) L 01/11/25 08:43 MCV 94.6 fl (82-101) 01/11/25 08:43 MCH 30.0 pg (27-33) 01/11/25 08:43 MCHC 31.7 g/dL (30-55) 01/11/25 08:43 RDW 13.8 % (12.1-15.1) 01/11/25 08:43 Plt Count 309 10^3/cmm (157-399) 01/11/25 08:43 MPV 9.5 fL (7.4-10.4) 01/11/25 08:43 Neut % (Auto) 70.4 % 01/11/25 08:43 Lymph % (Auto) 15.8 % 01/11/25 08:43 [place] % (Auto) 11.2 % 01/11/25 08:43 Eos % (Auto) 1.9 % 01/11/25 08:43 Baso % (Auto) 0.3 % 01/11/25 08:43 Neut # (Auto) 6.72 10^3/uL (1.8-7.7) 01/11/25 08:43 Lymph # (Auto) 1.5 10^3/uL (0.8-4.8) 01/11/25 08:43 [place] # (Auto) 1.1 10^3/uL (0.2-0.9) H 01/11/25 08:43 Eos # (Auto) 0.2 10^3/uL (0.0-0.8) 01/11/25 08:43 Baso # (Auto) 0.0 10^3/uL (0.0-0.1) 01/11/25 08:43 Nucleated RBC % (auto) 0.3 % 01/11/25 08:43 Nucleated RBCs # 0.0 /100WBC 01/11/25 08:43 Sodium 136 mmol/L (136-145) 01/11/25 08:43 Potassium 3.8 mmol/L (3.5-5.1) 01/11/25 08:43 Chloride 99 mmol/L (98-107) 01/11/25 08:43 Carbon Dioxide 21 mmol/L (22-29) L 01/11/25 08:43 Anion Gap 19.8 (5-19) H 01/11/25 08:43 BUN 27 mg/dL (8-23) H 01/11/25 08:43 Creatinine 1.0 mg/dL (0.7-1.2) 01/11/25 08:43 GFR Calculation Not Reportable 01/11/25 08:43 Glucose 134 mg/dL (65-115) H 01/11/25 08:43 Calculated Osmolality 289 mOsm/kg (285-295) 01/11/25 08:43 Calcium 8.8 mg/dL (8.5-10.5) 01/11/25 08:43 Total Bilirubin 0.7 mg/dL (0.15-1.2) 01/11/25 08:43 AST 18 U/L (0-40) 01/11/25 08:43 ALT 11 U/L (0-41) 01/11/25 08:43 Alkaline Phosphatase 82 U/L (40-130) 01/11/25 08:43 Creatine Kinase 95 U/L (39-308) 01/11/25 08:43 Troponin T Baseline 70 ng/L (0-15) H 01/11/25 08:43 Troponin T 120 Minute 64.26 ng/L (0-15) H 01/11/25 10:43 Delta Troponin T -5.74 ABS# (0-10) L 01/11/25 10:43 Total Protein 6.2 g/dL (6.6-8.7) L 01/11/25 08:43 Albumin 4.2 g/dL (3.5-5.2) 01/11/25 08:43 Globulin 2.0 g/dL (1.3-4.6) 01/11/25 08:43 Urine Color Yellow (Yellow) 01/11/25 11:45 Urine Appearance Clear (CLEAR) 01/11/25 11:45 Urine pH 5 (5-7) 01/11/25 11:45 Ur Specific [place] 1.020 (1.005-1.030) 01/11/25 11:45 Urine Protein Trace (Negative) 01/11/25 11:45 Urine Glucose (UA) 4+ (Normal) H 01/11/25 11:45 Urine Ketones Negative (Negative) 01/11/25 11:45 Urine Blood Neg (Negative) 01/11/25 11:45 Urine Nitrate Negative (Negative) 01/11/25 11:45 Urine Bilirubin Neg (Negative) 01/11/25 11:45 Urine Urobilinogen Norm mg/dL (Negative) 01/11/25 11:45 Ur Leukocyte Esterase Negative (Negative) 01/11/25 11:45 Urine RBC 0-2 /hpf (0-2) 01/11/25 11:45 Urine WBC 0-5 /hpf (0-5) 01/11/25 11:45 Ur Squamous Epith Cells 0-5 /hpf (0-5) 01/11/25 11:45 Amorphous Sediment Not Reportable 01/11/25 11:45 Urine Bacteria None seen /hpf (NONE) 01/11/25 11:45 Hyaline Casts 0.40 /lpf 01/11/25 11:45 Influenza A (PCR) Negative (Negative) 01/11/25 09:16 Influenza Type B (PCR) Negative (Negative) 01/11/25 09:16 RSV (PCR) Negative (Negative) 01/11/25 09:16 SARS-CoV-2 (PCR) Negative (Negative) 01/11/25 09:16 All radiology interpretation(s) finalized by discharge Discharge Plan Discharge Patient Disposition: Home Clinical Impression: CVA (cerebral vascular accident), HTN (hypertension), Weakness Condition: Stable Prescriptions: No Action nystatin 100,000 unit/gram ointment 1 applic topical DAILY PRN (Reason: Skin Irritation) donepezil 10 mg tablet 10 mg PO DAILY furosemide 40 mg tablet 40 mg PO DAILY metoprolol succinate 25 mg tablet extended release 24 hr 25 mg PO DAILY spironolactone 25 mg tablet 25 mg PO DAILY Rx Instructions: HOLD clopidogrel 75 mg tablet 75 mg PO DAILY Jardiance 10 mg tablet 10 mg PO DAILY isosorbide mononitrate 30 mg tablet extended release 24 hr 30 mg PO QAM nitroglycerin 0.4 mg tablet, sublingual See Rx Instructions .ROUTE .COMPLEX Rx Instructions: PLACE 1 TABLET UNDER TONGUE EVERY 5 MINUTES NEEDED FOR CHEST PAIN. aspirin 81 mg Tablet,Delayed Release (Dr/Ec) 81 mg PO DAILY Qty: 30 0RF atorvastatin 80 mg Tablet 80 mg PO QPM levothyroxine [Levoxyl] 100 mcg tablet 100 mcg PO QAM Discharge Orders: Discharge ED (Routine); Ordered 01/11/25 Ordered By: Adal Garza Referrals: Wolf Shepard DO [Primary Care Provider] - Discharge Diet: Usual diet Discharge Activity: Increase activity as tolerated Patient Instructions: Opioid Safety, Pain Management Activity Restrictions/Additional Instructions: Thank you for choosing [facility] for your healthcare needs today. It is very important that you follow up as instructed or that you return to the Emergency Department should you have concerns or if your condition changes or worsens in any way. You were seen in the emergency room for an episode of weakness. This was likely in part due to your stroke as well as due to having just taken a shower. Your medicines that you take for blood pressure also likely played a role in this. You should continue to take your current medications particularly aspirin Plavix and atorvastatin. On exam today there was no signs of a new stroke. Case management will discuss with you potential rehab options. Follow-up with your primary care doctor as previously scheduled. Print Language: Sri Lankan Coding Level of Care Code ED Submarine Element Coordinator for Chg Fwd Related Data Home Medications ?Medication ?Instructions ?Recorded ?Confirmed clopidogrel 75 mg tablet 75 mg PO DAILY 01/04/25 01/11/25 donepezil 10 mg tablet 10 mg PO DAILY 01/04/25 01/11/25 empagliflozin 10 mg tablet 10 mg PO DAILY 01/04/25 01/11/25 (Jardiance) furosemide 40 mg tablet 40 mg PO DAILY 01/04/25 01/11/25 metoprolol succinate 25 mg 25 mg PO DAILY 01/04/25 01/11/25 tablet,extended release 24 hr nystatin 100,000 unit/gram topical 1 applic topical DAILY PRN Skin 01/04/25 01/11/25 ointment Irritation spironolactone 25 mg tablet 25 mg PO DAILY 01/04/25 01/11/25 Held on 01/06/25. Instructions: see pcp isosorbide mononitrate 30 mg 30 mg PO QAM 01/05/25 01/11/25 tablet,extended release 24 hr nitroglycerin 0.4 mg sublingual See Rx Instructions .Route .COMPLEX 01/05/25 01/11/25 tablet atorvastatin 80 mg tablet 80 mg PO QPM 01/11/25 01/11/25 levothyroxine 100 mcg tablet 100 mcg PO QAM 01/11/25 01/11/25 (Levoxyl) Previous Rx's ?Medication ?Instructions ?Recorded aspirin 81 mg tablet,delayed 81 mg PO DAILY #30 tabs 01/06/25 release Allergies Allergy/AdvReac Type Severity Reaction Status Date / Time No Known Allergies Allergy Verified 01/04/25 16:18 NIH stroke score NIHSS Level Of Consciousness - 1a: 0 Level Of Consciousness Questions - 1b: Both Correct Level Of Consciousness Commands - 1c: Both Correct Best Gaze - 2: Normal Visual [place] - 3: No Visual Loss Facial Palsy - 4: Normal Motor Arm Right - 5: No Drift Motor Arm Left - 5: No Drift Motor Leg Right - 6: No Drift Motor Leg Left - 6: No Drift Limb Ataxia - 7: Absent Sensory - 8: Normal Best Language - 9: No Aphasia Dysarthia - 10: Normal Extinction And Inattention - 11: 0 Score Total Score: 0
[2025-01-11 09:27] LABS: Basophils % 0.3 %; Eosinophils # 0.2 10^3/uL (0.0-0.8); Eosinophils % 1.9 %; Hematocrit 28.1 % (37-53); Lymphocytes # 1.5 10^3/uL (0.8-4.8); Lymphocytes % 15.8 %; Mean Corpuscular HGB Conc 31.7 g/dL (30-55); Mean Corpuscular Volume 94.6 fl (82-101); Mean Platelet Volume 9.5 fL (7.4-10.4); Monocytes # 1.1 10^3/uL (0.2-0.9); Monocytes % 11.2 %; Neutrophils # 6.72 10^3/uL (1.8-7.7); Neutrophils % 70.4 %; Nucleated Red Blood Cells % 0.3 %; Platelet Count 309 10^3/cmm (157-399); Red Blood Count 2.97 10^6/uL (3.85-5.65); Red Cell Distribution Width 13.8 % (12.1-15.1); White Blood Count 9.55 10^3/uL (3.29-11.43)
[2025-01-11 09:45] LABS: Troponin(5th) Baseline 70 ng/L (0-15)
[2025-01-11 09:47] LABS: Alanine Aminotransferase 11 U/L (0-41); Albumin Level 4.2 g/dL (3.5-5.2); Alkaline Phosphatase 82 U/L (40-130); Anion Gap 19.8 (5-19); Aspartate Amino Transferase 18 U/L (0-40); Blood Urea Nitrogen 27 mg/dL (8-23); Calcium 8.8 mg/dL (8.5-10.5); Carbon Dioxide 21 mmol/L (22-29); Chloride 99 mmol/L (98-107); Creatine Phosphokinase 95 U/L (39-308); Creatinine Clr Calc Pharmacy 65.5911; Glucose 134 mg/dL (65-115); Osmolality Calculated 289 mOsm/kg (285-295); Potassium 3.8 mmol/L (3.5-5.1); Sodium 136 mmol/L (136-145); Total Bilirubin 0.7 mg/dL (0.15-1.2); Total Protein 6.2 g/dL (6.6-8.7)
--- NOTE | 2025-01-11 10:08 | PC.PHAR ---
Pt states his daughter, Rupa takes care of his medications. Pt discharged last week with several changes to medications. All changes made and new rx's picked up. Pt too his am meds today and is interested in something to increase his energy levels.
[2025-01-11 10:29] LABS: Influenza A NEGATIVE (Negative); Influenza B NEGATIVE (Negative); Respiratory Syncytial Virus Ce NEGATIVE (Negative); SARS-CoV-2 PCR NEGATIVE (Negative)
[2025-01-11 11:00] VITALS: BP 124/62; PULSE 64; O2SAT 97
[2025-01-11 11:09] LABS: Troponin 5 2HR 64.26 ng/L (0-15)
[2025-01-11 11:10] LABS: Troponin 5 2HR Delta -5.74 ABS# (0-10)
--- NOTE | 2025-01-11 11:12 | ECG_ITS ---
[email or web address] Test Date: 2025-01-11 Pat Name: Constantin Dawson Department: Room: Gender: Male Discovery Guide: : 1940 Requested By: Adal Auguste Order Number: [id number] Aristeo MD: Jeanmarie Schwab M.D. Measurements Intervals [place] Rate: 62 P: 0 [place]: 0 QRS: -39 QRSD: 217 T: 139 QT: 528 QTc: 537 Interpretive Statements ELECTRONIC VENTRICULAR PACEMAKER ABNORMAL RHYTHM ECG Compared to ECG 01/11/2025 09:14:59 Intraventricular conduction delay no longer present Myocardial infarct finding no longer present Electronically Signed On 01-11-2025 21:38:17 CDT by Jeanmarie Schwab M.D. [email or web address]
[2025-01-11 11:30] VITALS: BP 123/58; PULSE 63; O2SAT 98
[2025-01-11 12:09] LABS: Bacteria Urine None Seen /hpf; RBC Urine 0-2 /hpf (0-2); Squamous Epithelial Cell Urine 0-5 /hpf (0-5); WBC Urine 0-5 /hpf (0-5)
[2025-01-11 12:10] LABS: Add Urine Microscopic? YES; Bilirubin Urine Neg (Negative); Blood Urine Neg (Negative); Glucose Urine UA 4+ (Normal); Ketones Urine Negative (Negative); Leukocyte Esterase Urine Negative (Negative); Nitrate Urine Negative (Negative); Protein Urine Trace (Negative); Urine Appearance Clear (CLEAR); Urine Color Yellow (Yellow); Urobilinogen Urine Norm (Negative); pH Urine 5 (5-7)
[2025-01-11 12:11] LABS: Add Urine Culture? No
[2025-01-11 13:06] VITALS: BP 144/75; PULSE 73; O2SAT 98
== END 2025-01-11 13:08 | disposition home or self-care (01) ==
PROVIDERS: Emergency Provider Family Medicine; PCP Family Medicine
DX: I63.9 Cerebral infarction, unspecified (principal); I10 Essential (primary) hypertension; R53.1 Weakness; Z11.52 Encounter for screening for COVID-19; Z79.02 Long term (current) use of antithrombotics/antiplatelets; Z79.82 Long term (current) use of aspirin; Z85.820 Personal history of malignant melanoma of skin; Z95.0 Presence of cardiac pacemaker
CPT/HCPCS: 36415; 71045; 80053; 81001; 82550; 84484; 85025; 87637; 93005; 99285

== ENCOUNTER 2025-02-06 22:07 | Emergency (ER) | payer MEDICARE, OTHER, SELFPAY ==
[2025-02-06 22:15] VITALS: BP 122/51; PULSE 63; RESP 18; TEMP 36.8; O2SAT 97; BMI 33.9
--- NOTE | 2025-02-06 23:54 | XRR_ITS ---
PROCEDURE INFORMATION: Exam: XR Chest Exam date and time: 02/07/2025 12:21 AM Age: 85 years old Clinical indication: Cough; Chest congestion TECHNIQUE: Imaging protocol: Radiologic exam of the chest. Views: 1 view. COMPARISON: CR XR chest 1V portable [id number] 01/11/2025 9:38 AM FINDINGS: Tubes, catheters and devices: Left-sided pacemaker. Lungs: Left lower lobe atelectasis versus minimal infiltrate. Pleural spaces: Small left pleural effusion. Trace right pleural effusion Heart/Mediastinum: Cardiomegaly. Bones/joints: Sternotomy wires. XR/XR chest 1V portable [id number] IMPRESSION: 1. Left lower lobe atelectasis versus minimal infiltrate. Trace right pleural effusion 2. Small left pleural effusion. 3. Cardiomegaly. 4. Sternotomy wires. 5. Left-sided pacemaker.
[2025-02-07 00:03] LABS: Basophils % 0.3 %; Eosinophils # 0.2 10^3/uL (0.0-0.8); Eosinophils % 2.5 %; Lymphocytes # 0.9 10^3/uL (0.8-4.8); Lymphocytes % 10.8 %; Mean Corpuscular HGB Conc 29.7 g/dL (30-55); Mean Corpuscular Hemoglobin 25.4 pg (27-33); Mean Corpuscular Volume 85.5 fl (82-101); Mean Platelet Volume 9.4 fL (7.4-10.4); Monocytes # 1.2 10^3/uL (0.2-0.9); Monocytes % 13.2 %; Neutrophils % 72.7 %; Nucleated Red Blood Cells % 0 %; Platelet Count 313 10^3/cmm (157-399); Red Blood Count 3.39 10^6/uL (3.85-5.65); White Blood Count 8.68 10^3/uL (3.29-11.43)
[2025-02-07 00:12] LABS: Alanine Aminotransferase 16 U/L (0-41); Albumin Level 3.7 g/dL (3.5-5.2); Alkaline Phosphatase 127 U/L (40-130); Anion Gap 12.9 (5-19); Aspartate Amino Transferase 34 U/L (0-40); Blood Urea Nitrogen 25 mg/dL (8-23); Carbon Dioxide 33 mmol/L (22-29); Chloride 95 mmol/L (98-107); Creatinine Clr Calc Pharmacy 46.9372; Globulin 2.9 g/dL (1.3-4.6); Glucose 126 mg/dL (65-115); Magnesium 2.2 mg/dL (1.7-2.3); NT Pro B Type Natriuretic Pept 5467 pg/mL (0-450); Osmolality Calculated 292 mOsm/kg (285-295); Sodium 138 mmol/L (136-145); Total Bilirubin 1.1 mg/dL (0.15-1.2); Total Protein 6.6 g/dL (6.6-8.7)
[2025-02-07 00:14] LABS: Potassium 2.9 mmol/L (3.5-5.1)
[2025-02-07] MEDS: FUROsemide 10 mg/mL SDV 10mL 100 MG IVP (00:32)
[2025-02-07] MEDS: potassium chloride oral liq 20 mEq/15 mL UDC 40 MEQ PO (00:32)
--- NOTE | 2025-02-07 00:45 | W.ED.EXTPRO ---
HPI - Extremity Problem General: Chief complaint: Extremity Problem,Nontraumatic Stated complaint: LEGS SWELLING Time Seen by Provider: 02/06/25 23:23 History of Present Illness: 85-year-old gentleman with increasing leg swelling over the last couple of weeks. He says he feels like his chest is congested as well. He has been at [facility] for a week. He has been taking his normal furosemide dosage at 40 mg daily. He has not been taking metolazone, which she is post to be taking as needed for swelling. He has noticed a weight gain. He feels like his pants are more full feeling as if his belly is swollen. Related Data Home Medications ?Medication ?Instructions ?Recorded ?Confirmed clopidogrel 75 mg tablet 75 mg PO DAILY 01/04/25 01/11/25 donepezil 10 mg tablet 10 mg PO DAILY 01/04/25 01/11/25 empagliflozin 10 mg tablet 10 mg PO DAILY 01/04/25 01/11/25 (Jardiance) furosemide 40 mg tablet 40 mg PO DAILY 01/04/25 01/11/25 metoprolol succinate 25 mg 25 mg PO DAILY 01/04/25 01/11/25 tablet,extended release 24 hr nystatin 100,000 unit/gram topical 1 applic topical DAILY PRN Skin 01/04/25 01/11/25 ointment Irritation isosorbide mononitrate 30 mg 30 mg PO QAM 01/05/25 01/11/25 tablet,extended release 24 hr nitroglycerin 0.4 mg sublingual See Rx Instructions .Route .COMPLEX 01/05/25 01/11/25 tablet atorvastatin 80 mg tablet 80 mg PO QPM 01/11/25 01/11/25 levothyroxine 100 mcg tablet 100 mcg PO QAM 01/11/25 01/11/25 (Levoxyl) Previous Rx's ?Medication ?Instructions ?Recorded aspirin 81 mg tablet,delayed 81 mg PO DAILY #30 tabs 01/06/25 release furosemide 40 mg tablet 40 mg PO BID #30 tabs 02/07/25 spironolactone 25 mg tablet 25 mg PO DAILY #30 tabs 02/07/25 Allergies Allergy/AdvReac Type Severity Reaction Status Date / Time No Known Allergies Allergy Verified 01/04/25 16:18 [facility] ED PFS: Medical History Pacemaker Melanoma Non Hodgkin's lymphoma Degenerative disc disease Atrial fibrillation Cervical radiculitis Generalized weakness HTN (hypertension) Social History Smoking and tobacco/nicotine status: never used tobacco/nicotine Physical Exam Const: COMMON NORMALS: no acute distress GENERAL APPEARANCE: cooperative and frail appearing (mildly) Resp: COMMON NORMALS: normal respiratory effort and clear to auscultation bilaterally AUSCULTATION: clear to auscultation bilaterally Cardio: COMMON NORMALS: regular rate and regular rhythm RATE: regular rate RHYTHM: regular rhythm GI: COMMON NORMALS: Soft to palpation INSPECTION: No abdominal distension PALPATION: Yes Soft to palpation Extremity: NARRATIVE EXTREMITY EXAM: 3+bilateral edema. pulses and sensation intact. Course Vital Signs: Vital signs: Vital Signs Temperature 98.3 F 02/06/25 22:15 Pulse Rate 76 02/07/25 01:31 Respiratory Rate 16 02/07/25 01:31 Blood Pressure 131/71 02/07/25 01:31 Pulse Oximetry 96 02/07/25 01:31 Oxygen Delivery Me thod Room Air 02/06/25 22:15 MDM - Extremity (Nontraumatic) Medical Decision Making Patient given 100 milligrams Lasix. He is starting to diurese. Potassium is 2.9. This is repleated. He will be placed on a potassium sparing diuretic along with increasing his lasix dosage for five days. This should help continue to take fluid off. He has as needed metolazone he can use it as well. Aldactone was added to prevent worsening of hypokalemia. He's in no respiratory distress. He'll be discharged period to return for worsening symptoms despite treatment. Lab Data 02/06/25 23:39 02/06/25 23:39 Radiology Impressions Chest X-Ray 02/06/25 23:54 IMPRESSION: 1. Left lower lobe atelectasis versus minimal infiltrate. Trace right pleural effusion 2. Small left pleural effusion. 3. Cardiomegaly. 4. Sternotomy wires. 5. Left-sided pacemaker. Laboratory Results WBC 8.68 10^3/uL (3.29-11.43) 02/06/25 23:39 RBC 3.39 10^6/uL (3.85-5.65) L 02/06/25 23:39 Hgb 8.60 g/dL (11.27-16.99) L 02/06/25 23:39 Hct 29.0 % (37-53) L 02/06/25 23:39 MCV 85.5 fl (82-101) 02/06/25 23: MCH 25.4 pg (27-33) L 02/06/25 23: MCHC 29.7 g/dL (30-55) L 02/06/25 23: RDW 17.0 % (12.1-15.1) H 02/06/25 23:39 Plt Count 313 10^3/cmm (157-399) 02/06/25 23: MPV 9.4 fL (7.4-10.4) 02/06/25 23: Neut % (Auto) 72.7 % 02/06/25 23:39 Lymph % (Auto) 10.8 % 02/06/25 23: [place] % (Auto) 13.2 % 02/06/25 23:39 Eos % (Auto) 2.5 % 02/06/25 23: Baso % (Auto) 0.3 % 02/06/25 23:39 Neut # (Auto) 6.30 10^3/uL (1.8-7.7) 02/06/25 23:39 Lymph # (Auto) 0.9 10^3/uL (0.8-4.8) 02/06/25 23:39 [place] # (Auto) 1.2 10^3/uL (0.2-0.9) H 02/06/25 23:39 Eos # (Auto) 0.2 10^3/uL (0.0-0.8) 02/06/25 23: Baso # (Auto) 0.0 10^3/uL (0.0-0.1) 02/06/25 23: Nucleated RBC % (auto) 0 % 02/06/25 23: Nucleated RBCs # 0.0 /100WBC 02/06/25 23:39 Sodium 138 mmol/L (136-145) 02/06/25 23: Potassium 2.9 mmol/L (3.5-5.1) L 02/06/25 23:39 Chloride 95 mmol/L (98-107) L 02/06/25 23:39 Carbon Dioxide 33 mmol/L (22-29) H 02/06/25 23:39 Anion Gap 12.9 (5-19) 02/06/25 23:39 BUN 25 mg/dL (8-23) H 02/06/25 23:39 Creatinine 1.4 mg/dL (0.7-1.2) H 02/06/25 23:39 GFR Calculation Not Reportable 02/06/25 23:39 Glucose 126 mg/dL (65-115) H 02/06/25 23:39 Calculated Osmolality 292 mOsm/kg (285-295) 02/06/25 23:39 Calcium 9.0 mg/dL (8.5-10.5) 02/06/25 23:39 Magnesium 2.2 mg/dL (1.7-2.3) 02/06/25 23:39 Total Bilirubin 1.1 mg/dL (0.15-1.2) 02/06/25 23:39 AST 34 U/L (0-40) 02/06/25 23:39 ALT 16 U/L (0-41) 02/06/25 23:39 Alkaline Phosphatase 127 U/L (40-130) 02/06/25 23:39 NT-Pro-B Natriuret Pep 5467 pg/mL (0-450) H 02/06/25 23:39 Total Protein 6.6 g/dL (6.6-8.7) 02/06/25 23:39 Albumin 3.7 g/dL (3.5-5.2) 02/06/25 23:39 Globulin 2.9 g/dL (1.3-4.6) 02/06/25 23:39 Urine Color Yellow (Yellow) 02/07/25 00:50 Urine Appearance Cloudy (CLEAR) A 02/07/25 00:50 Urine pH 6.0 (5-7) 02/07/25 00:50 Ur Specific [place] 1.019 (1.005-1.030) 02/07/25 00:50 Urine Protein 2+ (Negative) A 02/07/25 00:50 Urine Glucose (UA) 3+ (Normal) H 02/07/25 00:50 Urine Ketones Negative (Negative) 02/07/25 00:50 Urine Blood 2+ (Negative) A 02/07/25 00:50 Urine Nitrate Negative (Negative) 02/07/25 00:50 Urine Bilirubin Negative (Negative) 02/07/25 00:50 Urine Urobilinogen 1.0 mg/dL (Negative) 02/07/25 00:50 Ur Leukocyte Esterase 1+ (Negative) A 02/07/25 00:50 Urine RBC 21-50 /hpf (0-2) H 02/07/25 00:50 Urine WBC 11-20 /hpf (0-5) H 02/07/25 00:50 Ur Squamous Epith Cells 11-20 /hpf (0-5) H 02/07/25 00:50 Amorphous Sediment 1+ /hpf 02/07/25 00:50 Urine Bacteria None seen /hpf (NONE) 02/07/25 00:50 Hyaline Casts 7.42 /lpf 02/07/25 00:50 Coarse Granular Casts 10-15 /lpf H 02/07/25 00:50 Urine Mucus Trace /hpf 02/07/25 00:50 All radiology interpretation(s) finalized by discharge Discharge Plan Discharge Patient Disposition: Home Clinical Impression: Lower extremity edema Condition: Stable Prescriptions: New furosemide 40 mg tablet 40 mg PO BID Qty: 30 0RF Continued spironolactone 25 mg tablet 25 mg PO DAILY Qty: 30 0RF Rx Instructions: HOLD No Action nystatin 100,000 unit/gram ointment 1 applic topical DAILY PRN (Reason: Skin Irritation) donepezil 10 mg tablet 10 mg PO DAILY furosemide 40 mg tablet 40 mg PO DAILY metoprolol succinate 25 mg tablet extended release 24 hr 25 mg PO DAILY clopidogrel 75 mg tablet 75 mg PO DAILY Jardiance 10 mg tablet 10 mg PO DAILY isosorbide mononitrate 30 mg tablet extended release 24 hr 30 mg PO QAM nitroglycerin 0.4 mg tablet, sublingual See Rx Instructions .ROUTE .COMPLEX Rx Instructions: PLACE 1 TABLET UNDER TONGUE EVERY 5 MINUTES NEEDED FOR CHEST PAIN. aspirin 81 mg Tablet,Delayed Release (Dr/Ec) 81 mg PO DAILY Qty: 30 0RF atorvastatin 80 mg Tablet 80 mg PO QPM levothyroxine [Levoxyl] 100 mcg tablet 100 mcg PO QAM Discharge Orders: Discharge ED (Routine); Ordered 02/07/25 Ordered By: Obed Luz Referrals: Wolf Shepard DO [Primary Care Provider] Patient Instructions: Opioid Safety, Pain Management Activity Restrictions/Additional Instructions: Take your furosemide twice daily for the next 5 days, then back to once daily. Add spironolactone back to your medications as above. Return for worsening swelling despite treatment, worsening shortness of breath, any other concerning symptoms. Print Language: Kyrgyz Coding Level of Care Code ED Data Officer for Gurmeet Alcocer
[2025-02-07 01:26] LABS: Bilirubin Urine Negative (Negative); Blood Urine 2+ (Negative); Glucose Urine UA 3+ (Normal); Ketones Urine Negative (Negative); Leukocyte Esterase Urine 1+ (Negative); Nitrate Urine Negative (Negative); Protein Urine 2+ (Negative); Specific Gravity, Urine 1.019 (1.005-1.030); Urine Appearance Cloudy (CLEAR); Urine Color Yellow (Yellow)
[2025-02-07 01:31] VITALS: BP 131/71; PULSE 76; RESP 16; O2SAT 96
[2025-02-07 01:31] LABS: Add Urine Microscopic? YES; Bacteria Urine None Seen /hpf; Hyaline Casts Urine 7.42 /lpf; RBC Urine 21-50 /hpf (0-2)
[2025-02-07 02:00] LABS: UA Slide Review UA Slide Review Perf
[2025-02-07 02:01] LABS: Add Urine Culture? No; Amorphous Sediment Urine 1+ /hpf; Mucus Urine TRACE /hpf
== END 2025-02-07 01:46 | disposition home or self-care (01) ==
PROVIDERS: Emergency Provider Emergency Medicine; PCP Family Medicine
DX: R60.0 Localized edema (principal); Z79.82 Long term (current) use of aspirin; Z79.02 Long term (current) use of antithrombotics/antiplatelets; Z95.0 Presence of cardiac pacemaker; Z85.820 Personal history of malignant melanoma of skin; I10 Essential (primary) hypertension
CPT/HCPCS: 71045; 80053; 81001; 83735; 83880; 85025; 96374; 99284; J1938; J9999

== ENCOUNTER 2025-02-13 13:59 | Outpatient (CLI) | payer MEDICARE, OTHER, SELFPAY ==
[2025-02-13 14:54] LABS: Anion Gap 18.2 (5-19); Blood Urea Nitrogen 25 mg/dL (8-23); Calcium 9.4 mg/dL (8.5-10.5); Carbon Dioxide 32 mmol/L (22-29); Chloride 84 mmol/L (98-107); Glucose 169 mg/dL (65-115); Osmolality Calculated 282 mOsm/kg (285-295); Sodium 132 mmol/L (136-145); Thyroid Stimulating Hormone 3.25 uIU/mL (0.27-4.20); Vitamin B12 721 pg/mL (232-1245)
[2025-02-13 15:00] LABS: Potassium 2.2 mmol/L (3.5-5.1)
== END 2025-02-13 14:00 | disposition home or self-care (01) ==
PROVIDERS: PCP Family Medicine; Visit Provider Family Medicine
DX: I10 Essential (primary) hypertension (principal)
CPT/HCPCS: 80048; 82607; 84443

== ENCOUNTER 2025-02-13 16:04 | Inpatient (IN) | payer MEDICARE, OTHER, SELFPAY ==
[2025-02-13] VITALS (7 sets, daily range): BP systolic 115–132; BP diastolic 59–78; PULSE 60–78; RESP 16–29; TEMP 36.7; O2SAT 95–98; BMI 32.2
--- NOTE | 2025-02-13 16:14 | ECG_ITS ---
[facility] Date: 2025-02-13 Pat Name: Constantin Dawson Department: Room: Gender: Male Senior Web Applications Developer: : 1940 Requested By: Adal Auguste Order Number: [id number] Aristeo MD: Trudy Sexton M.D. Measurements Intervals [place] Rate: 63 P: 0 [place]: 0 QRS: 108 QRSD: 201 T: -88 QT: 648 QTc: 665 Interpretive Statements ELECTRONIC VENTRICULAR PACEMAKER with PVCs. PROLONGED QT INTERVAL CRITICAL TEST RESULT Compared to ECG 01/11/2025 11:14:17 Prolonged QT now present Electronically Signed On 02-14-2025 12:33:57 CDT by Trudy Sexton M.D. [id number]
[2025-02-13 16:37] LABS: Bilirubin Urine Negative (Negative); Blood Urine 2+ (Negative); Glucose Urine UA 2+ (Normal); Ketones Urine Negative (Negative); Leukocyte Esterase Urine Negative (Negative); Nitrate Urine Negative (Negative); Protein Urine 1+ (Negative); Specific Gravity, Urine 1.008 (1.005-1.030); Urine Appearance Clear (CLEAR); Urine Color Yellow (Yellow); pH Urine 7.5 (5-7)
[2025-02-13 16:40] LABS: Basophils % 0.3 %; Eosinophils # 0.2 10^3/uL (0.0-0.8); Eosinophils % 1.8 %; Lymphocytes # 1.1 10^3/uL (0.8-4.8); Lymphocytes % 12.3 %; Mean Corpuscular HGB Conc 29.7 g/dL (30-55); Mean Corpuscular Hemoglobin 24.4 pg (27-33); Mean Corpuscular Volume 82.1 fl (82-101); Mean Platelet Volume 9.1 fL (7.4-10.4); Monocytes # 1.3 10^3/uL (0.2-0.9); Neutrophils # 6.45 10^3/uL (1.8-7.7); Neutrophils % 71.4 %; Nucleated Red Blood Cells % 0 %; Platelet Count 335 10^3/cmm (157-399); Red Cell Distribution Width 17.5 % (12.1-15.1); White Blood Count 9.03 10^3/uL (3.29-11.43)
[2025-02-13 16:42] LABS: Add Urine Microscopic? YES; Bacteria Urine None Seen /hpf; Hyaline Casts Urine 0.81 /lpf; Squamous Epithelial Cell Urine 0-5 /hpf (0-5); WBC Urine 0-5 /hpf (0-5)
--- NOTE | 2025-02-13 16:58 | W.ED.RECABL ---
Documented by User: Adal Garza DO 02/15/25 05:51 HPI - Recheck/Abnormal Lab/Rx General: Chief Complaint: Recheck/Abnormal Lab/Rx Stated Complaint: abnormal labs Time Seen by Provider: 02/13/25 16:17 History of Present Illness: 85-year-old male presents to the emergency room with family members due to abnormal lab work. He was recently seen by cardiology they adamant has a long due to fluid overload with failure to respond to his loop diuretic. He has had good response but on repeat lab work the potassium was reportedly down to 2.2. Patient has a pacemaker is a history of coronary artery disease history of congestive heart failure and atrial fibrillation. He denies any chest pain shortness of breath or palpitations this time he has had some muscle cramping. No fever sweats or chills. Related Data Home Medications ?Medication ?Instructions ?Recorded ?Confirmed clopidogrel 75 mg tablet 75 mg PO DAILY 01/04/25 02/14/25 donepezil 10 mg tablet 10 mg PO DAILY 01/04/25 02/14/25 empagliflozin 10 mg tablet 10 mg PO DAILY 01/04/25 02/14/25 (Jardiance) metoprolol succinate 25 mg 25 mg PO DAILY 01/04/25 02/14/25 tablet,extended release 24 hr isosorbide mononitrate 30 mg 30 mg PO QAM 01/05/25 02/14/25 tablet,extended release 24 hr nitroglycerin 0.4 mg sublingual See Rx Instructions .Route .COMPLEX 01/05/25 02/14/25 tablet atorvastatin 80 mg tablet 80 mg PO QPM 01/11/25 02/14/25 levothyroxine 100 mcg tablet 100 mcg PO QAM 01/11/25 02/14/25 (Levoxyl) Prevagen 1 cap PO DAILY 02/14/25 02/14/25 ezetimibe 10 mg tablet 10 mg PO DAILY 02/14/25 02/14/25 rosuvastatin 40 mg tablet 40 mg PO BEDTIME 02/14/25 02/14/25 Previous Rx's ?Medication ?Instructions ?Recorded aspirin 81 mg tablet,delayed 81 mg PO DAILY #30 tabs 01/06/25 release furosemide 40 mg tablet 40 mg PO BID #30 tabs 02/07/25 Allergies Allergy/AdvReac Type Severity Reaction Status Date / Time No Known Allergies Allergy Verified 01/04/25 16:18 Review of Systems Const: Denies: fever(s) or chills Card: Denies: chest pain Resp: Denies: dyspnea GI: Denies: abdominal pain : Denies: dysuria, urinary frequency or urinary urgency Musc: Denies: neck pain or back pain Skin/Breast: Denies: rash PFSH ED PFSH: Medical History (Updated 02/15/25 @ 00:00 by YURY Delong) Hypothyroidism Pacemaker Melanoma Non Hodgkin's lymphoma Degenerative disc disease Atrial fibrillation Cervical radiculitis Generalized weakness HTN (hypertension) Surgical History (Updated 02/14/25 @ 01:54 by Randi Spaulding MD) Hx of CABG Social History (Updated 02/14/25 @ 01:57 by Randi Spaulding MD) Smoking and tobacco/nicotine status: former use of tobacco/nicotine Quit status (tobacco/nicotine): has quit using Former quit date comment: smoked for about 10 yrs. quit over 20yrs to 30yrs ago. Alcohol intake: current Alcohol intake frequency: few times a week Alcohol type: beer, wine and hard liquor Substance/Drug Use: never Physical Exam Const: GENERAL APPEARANCE: cooperative ORIENTATION/CONSCIOUSNESS: Yes awake HENMT: COMMON NORMALS: normocephalic, atraumatic and hearing grossly normal bilaterally HEAD & SCALP: normocephalic and atraumatic Resp: COMMON NORMALS: normal respiratory effort, No retractions, No use of accessory muscles and clear to auscultation bilaterally AUSCULTATION: clear to auscultation bilaterally Cardio: COMMON NORMALS: regular rate, regular rhythm and No murmurs present (Cardio) RATE: regular rate RHYTHM: regular rhythm GI: COMMON NORMALS: Soft to palpation and No hepatosplenomegaly present AUSCULTATION: Yes normoactive bowel sounds PALPATION: Yes Soft to palpation, No Tenderness to palpation present (GI), No Guarding due to palpation present (GI) and Yes No hepatosplenomegaly present Extremity: COMMON NORMALS: normal to inspection, capillary refill normal, no clubbing, cyanosis or edema, no calf tenderness and no pedal edema Skin: COMMON NORMALS: no rashes or lesions noted GENERAL SKIN EXAM: no rashes or lesions noted Course Vital Signs: Vital signs: Vital Signs Temperature 97.6 F 02/15/25 03:56 Pulse Rate 60 02/15/25 03:56 Respiratory Rate 16 02/15/25 03:56 Blood Pressure 110/60 02/15/25 03:56 Pulse Oximetry 95 02/15/25 03:56 Oxygen Delivery Me thod Room Air 02/15/25 03:56 MDM - Recheck/Abnormal Lab/Rx Medical Decision Making 2-hour troponin is pending. Patient presented severely hypokalemic with mild acute kidney injury. IV potassium initiated. Discussed with hospitalist. Orders written for admission. Dr. Luz will monitor for 2-hour troponin. Care signed out to Dr. Luz at change of shift. See final notes for diagnosis and disposition. Patient checked out to me at shift change. He has significant hypokalemia. This has been repleted. Troponin was elevated initially. It did not change significantly at 2 hours. Likely related to his creatinine of 1.6. He has small bilateral pleural effusions. He is anemic with a hemoglobin of 9.5 will be admitted. Hospitalist is seeing the patient. Lab Data 02/15/25 02:08 02/15/25 02:08 Radiology Impressions Chest X-Ray 02/13/25 17:09 IMPRESSION: 1. Small bilateral pleural effusions left greater than right. 2. Cardiomegaly. 3. Left-sided pacemaker. 4. Sternotomy wires. Venous Duplex 02/14/25 02:25 IMPRESSION: No evidence of deep vein thrombosis. Laboratory Results WBC 7.73 10^3/uL (3.29-11.43) 02/14/25 08:44 RBC 3.69 10^6/uL (3.85-5.65) L 02/14/25 08:44 Hgb 9.00 g/dL (11.27-16.99) L 02/14/25 08:44 Hct 30.3 % (37-53) L 02/14/25 08:44 MCV 82.1 fl (82-101) 02/14/25 08:44 MCH 24.4 pg (27-33) L 02/14/25 08:44 MCHC 29.7 g/dL (30-55) L 02/14/25 08:44 RDW 17.5 % (12.1-15.1) H 02/14/25 08:44 Plt Count 305 10^3/cmm (157-399) 02/14/25 08:44 MPV 9.3 fL (7.4-10.4) 02/14/25 08:44 Neut % (Auto) 79.7 % 02/14/25 08:44 Lymph % (Auto) 8.8 % 02/14/25 08:44 [place] % (Auto) 10.0 % 02/14/25 08:44 Eos % (Auto) 0.9 % 02/14/25 08:44 Baso % (Auto) 0.3 % 02/14/25 08:44 Neut # (Auto) 6.17 10^3/uL (1.8-7.7) 02/14/25 08:44 Lymph # (Auto) 0.7 10^3/uL (0.8-4.8) L 02/14/25 08:44 [place] # (Auto) 0.8 10^3/uL (0.2-0.9) 02/14/25 08:44 Eos # (Auto) 0.1 10^3/uL (0.0-0.8) 02/14/25 08:44 Baso # (Auto) 0.0 10^3/uL (0.0-0.1) 02/14/25 08:44 Nucleated RBC % (auto) 0 % 02/14/25 08:44 Nucleated RBCs # 0.0 /100WBC 02/14/25 08:44 Sodium 132 mmol/L (136-145) L 02/13/25 16:35 Potassium 2.1 mmol/L (3.5-5.1) L* 02/13/25 16:35 Chloride 83 mmol/L (98-107) L 02/13/25 16:35 Carbon Dioxide 33 mmol/L (22-29) H 02/13/25 16:35 Anion Gap 18.1 (5-19) 02/13/25 16:35 BUN 28 mg/dL (8-23) H 02/13/25 16:35 Creatinine 1.6 mg/dL (0.7-1.2) H 02/13/25 16:35 GFR Calculation Not Reportable 02/13/25 16:35 Glucose 92 mg/dL (65-115) 02/13/25 16:35 Calculated Osmolality 279 mOsm/kg (285-295) L 02/13/25 16:35 Calcium 9.5 mg/dL (8.5-10.5) 02/13/25 16:35 Phosphorus 3.3 mg/dL (2.5-4.5) 02/13/25 16:35 Magnesium 2.1 mg/dL (1.7-2.3) 02/13/25 16:35 Total Bilirubin 1.5 mg/dL (0.15-1.2) H 02/13/25 16:35 AST 38 U/L (0-40) 02/13/25 16:35 ALT 18 U/L (0-41) 02/13/25 16:35 Alkaline Phosphatase 114 U/L (40-130) 02/13/25 16:35 Troponin T Baseline 191 ng/L (0-15) H* 02/13/25 16:35 Troponin T 120 Minute 191.6 ng/L (0-15) H 02/13/25 18:27 Delta Troponin T 0.6 ABS# (0-10) 02/13/25 18:27 Troponin T Hi Sens 6Hr 207.8 ng/L (0-15) H 02/13/25 22:11 Troponin T Hi Sens 6Hr Delta 16.8 ng/L (0-12) H* 02/13/25 22:11 NT-Pro-B Natriuret Pep 5449 pg/mL (0-450) H 02/13/25 16:35 Total Protein 6.6 g/dL (6.6-8.7) 02/13/25 16:35 Albumin 4.1 g/dL (3.5-5.2) 02/13/25 16:35 Globulin 2.5 g/dL (1.3-4.6) 02/13/25 16:35 Urine Color Yellow (Yellow) 02/13/25 16:23 Urine Appearance Clear (CLEAR) 02/13/25 16:23 Urine pH 7.5 (5-7) 02/13/25 16: Ur Specific [place] 1.008 (1.005-1.030) 02/13/25 16:23 Urine Protein 1+ (Negative) A 02/13/25 16:23 Urine Glucose (UA) 2+ (Normal) H 02/13/25 16:23 Urine Ketones Negative (Negative) 02/13/25 16:23 Urine Blood 2+ (Negative) A 02/13/25 16:23 Urine Nitrate Negative (Negative) 02/13/25 16:23 Urine Bilirubin Negative (Negative) 02/13/25 16:23 Urine Urobilinogen 1.0 mg/dL (Negative) 02/13/25 16:23 Ur Leukocyte Esterase Negative (Negative) 02/13/25 16:23 Urine RBC 3-5 /hpf (0-2) 02/13/25 16:23 Urine WBC 0-5 /hpf (0-5) 02/13/25 16:23 Ur Squamous Epith Cells 0-5 /hpf (0-5) 02/13/25 16:23 Amorphous Sediment Not Reportable 02/13/25 16:23 Urine Bacteria None seen /hpf (NONE) 02/13/25 16:23 Hyaline Casts 0.81 /lpf 02/13/25 16:23 Discharge Plan Discharge Patient Disposition: Admitted As Inpatient Admit Provider: Charlee Leon Clinical Impression: Acute hypokalemia, Pleural effusion Condition: Fair Coding Level of Care Code ED Regional Trainer for Chg Fwd Documented by User: Obed Luz DO 02/14/25 04:54 HPI - Recheck/Abnormal Lab/Rx General: Chief Complaint: Recheck/Abnormal Lab/Rx Stated Complaint: abnormal labs Time Seen by Provider: 02/13/25 16:17 Related Data Home Medications ?Medication ?Instructions ?Recorded ?Confirmed clopidogrel 75 mg tablet 75 mg PO DAILY 01/04/25 02/14/25 donepezil 10 mg tablet 10 mg PO DAILY 01/04/25 02/14/25 empagliflozin 10 mg tablet 10 mg PO DAILY 01/04/25 02/14/25 (Jardiance) metoprolol succinate 25 mg 25 mg PO DAILY 01/04/25 02/14/25 tablet,extended release 24 hr isosorbide mononitrate 30 mg 30 mg PO QAM 04/08/25 05/18/25 tablet,extended release 24 hr nitroglycerin 0.4 mg sublingual See Rx Instructions .Route .COMPLEX 01/05/25 02/14/25 tablet atorvastatin 80 mg tablet 80 mg PO QPM 01/11/25 02/14/25 levothyroxine 100 mcg tablet 100 mcg PO QAM 01/11/25 02/14/25 (Levoxyl) Prevagen 1 cap PO DAILY 02/14/25 02/14/25 ezetimibe 10 mg tablet 10 mg PO DAILY 02/14/25 02/14/25 rosuvastatin 40 mg tablet 40 mg PO BEDTIME 02/14/25 02/14/25 Previous Rx's ?Medication ?Instructions ?Recorded aspirin 81 mg tablet,delayed 81 mg PO DAILY #30 tabs 01/06/25 release furosemide 40 mg tablet 40 mg PO BID #30 tabs 02/07/25 Allergies Allergy/AdvReac Type Severity Reaction Status Date / Time No Known Allergies Allergy Verified 01/04/25 16:18 [facility] ED PFSH: Medical History (Updated 02/15/25 @ 00:00 by YURY Delong) Hypothyroidism Pacemaker Melanoma Non Hodgkin's lymphoma Degenerative disc disease Atrial fibrillation Cervical radiculitis Generalized weakness HTN (hypertension) Surgical History (Updated 02/14/25 @ 01:54 by Randi Spaulding MD) Hx of CABG Social History (Updated 02/14/25 @ 01:57 by Randi Spaulding MD) Smoking and tobacco/nicotine status: former use of tobacco/nicotine Quit status (tobacco/nicotine): has quit using Former quit date comment: smoked for about 10 yrs. quit over 20yrs to 30yrs ago. Alcohol intake: current Alcohol intake frequency: few times a week Alcohol type: beer, wine and hard liquor Substance/Drug Use: never Course Vital Signs: Vital signs: Vital Signs Temperature 97.6 F 02/15/25 03:56 Pulse Rate 60 02/15/25 03:56 Respiratory Rate 16 02/15/25 03:56 Blood Pressure 110/60 02/15/25 03:56 Pulse Oximetry 95 02/15/25 03:56 Oxygen Delivery Me thod Room Air 02/15/25 03:56 MDM - Recheck/Abnormal Lab/Rx Medical Decision Making Patient checked out to me at shift change. He has significant hypokalemia. This has been repleted. Troponin was elevated initially. It did not change significantly at 2 hours. Likely related to his creatinine of 1.6. He has small bilateral pleural effusions. He is anemic with a hemoglobin of 9.5 will be admitted. Hospitalist is seeing the patient. Lab Data 02/15/25 02:08 02/15/25 02:08 Radiology Impressions Chest X-Ray 02/13/25 17:09 IMPRESSION: 1. Small bilateral pleural effusions left greater than right. 2. Cardiomegaly. 3. Left-sided pacemaker. 4. Sternotomy wires. Venous Duplex 02/14/25 02:25 IMPRESSION: No evidence of deep vein thrombosis. Laboratory Results WBC 7.73 10^3/uL (3.29-11.43) 02/14/25 08:44 RBC 3.69 10^6/uL (3.85-5.65) L 02/14/25 08:44 Hgb 9.00 g/dL (11.27-16.99) L 02/14/25 08:44 Hct 30.3 % (37-53) L 02/14/25 08:44 MCV 82.1 fl (82-101) 02/14/25 08:44 MCH 24.4 pg (27-33) L 02/14/25 08:44 MCHC 29.7 g/dL (30-55) L 02/14/25 08:44 RDW 17.5 % (12.1-15.1) H 02/14/25 08:44 Plt Count 305 10^3/cmm (157-399) 02/14/25 08:44 MPV 9.3 fL (7.4-10.4) 02/14/25 08:44 Neut % (Auto) 79.7 % 02/14/25 08:44 Lymph % (Auto) 8.8 % 02/14/25 08:44 [place] % (Auto) 10.0 % 02/14/25 08:44 Eos % (Auto) 0.9 % 02/14/25 08:44 Baso % (Auto) 0.3 % 02/14/25 08:44 Neut # (Auto) 6.17 10^3/uL (1.8-7.7) 02/14/25 08:44 Lymph # (Auto) 0.7 10^3/uL (0.8-4.8) L 02/14/25 08:44 [place] # (Auto) 0.8 10^3/uL (0.2-0.9) 02/14/25 08:44 Eos # (Auto) 0.1 10^3/uL (0.0-0.8) 02/14/25 08:44 Baso # (Auto) 0.0 10^3/uL (0.0-0.1) 02/14/25 08:44 Nucleated RBC % (auto) 0 % 02/14/25 08:44 Nucleated RBCs # 0.0 /100WBC 02/14/25 08:44 Sodium 132 mmol/L (136-145) L 02/13/25 16:35 Potassium 2.1 mmol/L (3.5-5.1) L* 02/13/25 16:35 Chloride 83 mmol/L (98-107) L 02/13/25 16:35 Carbon Dioxide 33 mmol/L (22-29) H 02/13/25 16:35 Anion Gap 18.1 (5-19) 02/13/25 16:35 BUN 28 mg/dL (8-23) H 02/13/25 16:35 Creatinine 1.6 mg/dL (0.7-1.2) H 02/13/25 16:35 GFR Calculation Not Reportable 02/13/25 16:35 Glucose 92 mg/dL (65-115) 02/13/25 16:35 Calculated Osmolality 279 mOsm/kg (285-295) L 02/13/25 16:35 Calcium 9.5 mg/dL (8.5-10.5) 02/13/25 16:35 Phosphorus 3.3 mg/dL (2.5-4.5) 02/13/25 16:35 Magnesium 2.1 mg/dL (1.7-2.3) 02/13/25 16:35 Total Bilirubin 1.5 mg/dL (0.15-1.2) H 02/13/25 16:35 AST 38 U/L (0-40) 02/13/25 16:35 ALT 18 U/L (0-41) 02/13/25 16:35 Alkaline Phosphatase 114 U/L (40-130) 02/13/25 16:35 Troponin T Baseline 191 ng/L (0-15) H* 02/13/25 16:35 Troponin T 120 Minute 191.6 ng/L (0-15) H 02/13/25 18:27 Delta Troponin T 0.6 ABS# (0-10) 02/13/25 18:27 Troponin T Hi Sens 6Hr 207.8 ng/L (0-15) H 02/13/25 22:11 Troponin T Hi Sens 6Hr Delta 16.8 ng/L (0-12) H* 02/13/25 22:11 NT-Pro-B Natriuret Pep 5449 pg/mL (0-450) H 02/13/25 16:35 Total Protein 6.6 g/dL (6.6-8.7) 02/13/25 16:35 Albumin 4.1 g/dL (3.5-5.2) 02/13/25 16:35 Globulin 2.5 g/dL (1.3-4.6) 02/13/25 16:35 Urine Color Yellow (Yellow) 02/13/25 16:23 Urine Appearance Clear (CLEAR) 02/13/25 16:23 Urine pH 7.5 (5-7) 02/13/25 16:23 Ur Specific [place] 1.008 (1.005-1.030) 02/13/25 16:23 Urine Protein 1+ (Negative) A 02/13/25 16:23 Urine Glucose (UA) 2+ (Normal) H 02/13/25 16:23 Urine Ketones Negative (Negative) 02/13/25 16:23 Urine Blood 2+ (Negative) A 02/13/25 16:23 Urine Nitrate Negative (Negative) 02/13/25 16:23 Urine Bilirubin Negative (Negative) 02/13/25 16:23 Urine Urobilinogen 1.0 mg/dL (Negative) 02/13/25 16:23 Ur Leukocyte Esterase Negative (Negative) 02/13/25 16:23 Urine RBC 3-5 /hpf (0-2) 02/13/25 16:23 Urine WBC 0-5 /hpf (0-5) 02/13/25 16:23 Ur Squamous Epith Cells 0-5 /hpf (0-5) 02/13/25 16:23 Amorphous Sediment Not Reportable 02/13/25 16:23 Urine Bacteria None seen /hpf (NONE) 02/13/25 16:23 Hyaline Casts 0.81 /lpf 02/13/25 16:23 All radiology interpretation(s) finalized by discharge Discharge Plan Discharge Patient Disposition: Admitted As Inpatient Admit Provider: Charlee Leon Clinical Impression: Acute hypokalemia, Pleural effusion Condition: Fair Coding Level of Care Code ED Regional Trainer for [facility] [place]
[2025-02-13 17:09] LABS: Alanine Aminotransferase 18 U/L (0-41); Albumin Level 4.1 g/dL (3.5-5.2); Alkaline Phosphatase 114 U/L (40-130); Anion Gap 18.1 (5-19); Aspartate Amino Transferase 38 U/L (0-40); Blood Urea Nitrogen 28 mg/dL (8-23); Calcium 9.5 mg/dL (8.5-10.5); Carbon Dioxide 33 mmol/L (22-29); Chloride 83 mmol/L (98-107); Creatinine Clr Calc Pharmacy 40.0766; Globulin 2.5 g/dL (1.3-4.6); Glucose 92 mg/dL (65-115); Magnesium 2.1 mg/dL (1.7-2.3); Osmolality Calculated 279 mOsm/kg (285-295); Sodium 132 mmol/L (136-145); Total Bilirubin 1.5 mg/dL (0.15-1.2); Total Protein 6.6 g/dL (6.6-8.7); Troponin(5th) Baseline 191 ng/L (0-15)
--- NOTE | 2025-02-13 17:09 | XRR_ITS ---
PROCEDURE INFORMATION: Exam: XR Chest Exam date and time: 02/13/2025 5:28 PM Age: 85 years old Clinical indication: Dyspnea; Prior surgery; Surgery date: 6+ months; Surgery type: Cabg, pacemaker; Additional info: Dyspnea/cough TECHNIQUE: Imaging protocol: Radiologic exam of the chest. Views: 1 view. COMPARISON: CR (CHEST, ) 02/07/2025 12:21 AM FINDINGS: Tubes, catheters and devices: Left-sided pacemaker. Lungs: Unremarkable. No consolidation. Pleural spaces: Small bilateral pleural effusions left greater than right. Heart/Mediastinum: Cardiomegaly. Bones/joints: Sternotomy wires. XR/XR chest 1V portable [id number] IMPRESSION: 1. Small bilateral pleural effusions left greater than right. 2. Cardiomegaly. 3. Left-sided pacemaker. 4. Sternotomy wires.
[2025-02-13 17:10] LABS: Potassium 2.1 mmol/L (3.5-5.1)
[2025-02-13 17:51] LABS: NT Pro B Type Natriuretic Pept 5449 pg/mL (0-450)
--- NOTE | 2025-02-13 17:53 | ECG_ITS ---
[facility] 2025-[facility]13 Pat Name: Constantin Dawson Department: Room: Gender: Male Hotel Maintenance Technician: : 1940 Requested By: Adal Auguste Order Number: [id number] Aristeo MD: Trudy Sexton M.D. Measurements Intervals [place] Rate: 65 P: 0 CA: 0 QRS: -75 QRSD: 242 T: 95 QT: 562 QTc: 586 Interpretive Statements ELECTRONIC VENTRICULAR PACEMAKER PROLONGED QT INTERVAL CRITICAL TEST RESULT Compared to ECG 01/11/2025 11:14:17 Prolonged QT interval now present Electronically Signed On 02-14-2025 12:40:49 CDT by Trudy Sexton M.D. [email or web address]
[2025-02-13] MEDS: potassium phosphate (mEq K) 40 MEQ in sodium chloride 0.9% (100 ml) 100 ML 25 MEQ IV ×2 (18:16→22:48)
[2025-02-13 19:03] LABS: Troponin 5 2HR Delta 0.6 ABS# (0-10)
[2025-02-13 19:04] LABS: Troponin 5 2HR 191.6 ng/L (0-15)
[2025-02-13 20:03] LABS: Phosphorus 3.3 mg/dL (2.5-4.5)
--- NOTE | 2025-02-13 22:24 | ECG_ITS ---
[facility] Test Date: 2025-02-15 Pat Name: Constantin Dawson Department: Room: 277 Gender: Male Sales Secretary: : 1940 Requested By: Adal Auguste Order Number: [id number] Aristeo MD: Jeanmarie Schwab M.D. Measurements Intervals [place] Rate: 63 P: 0 GA: 0 QRS: 106 QRSD: 189 T: -87 QT: 601 QTc: 620 Interpretive Statements demand AV pacing with frequent PVCs ELECTRONIC VENTRICULAR PACEMAKER -- CONTOUR ANALYSIS BASED ON INTRINSIC RHYTHM INTRAVENTRICULAR CONDUCTION DELAY [130+ ms QRS DURATION] RIGHT VENTRICULAR HYPERTROPHY [SOME/ALL OF: PROMINENT R IN V1, LATE TRANSITION, RAD, STEPHAN, SSS] PROLONGED QT INTERVAL CRITICAL TEST RESULT Compared to ECG 02/13/2025 17:53:42 Intraventricular conduction delay now present Right ventricular hypertrophy now present Electronically Signed On 02-16-2025 17:54:23 CDT by Jeanmarie Schwab M.D. [email or web address]
[2025-02-13 22:49] LABS: Troponin 5 6HR 207.8 ng/L (0-15)
[2025-02-13 22:50] LABS: Troponin 5 6HR Delta 16.8 ng/L (0-12)
--- NOTE | 2025-02-13 23:00 | PM.HP ---
Providers/Chief Complaint Admitting Physician: Charlee Leon MD Primary Care Provider: Wolf Shepard DO Chief Complaint: abnormal labs History of Present Illness Patient is a poor historian, and family was not available at the time of this interview. Constantin Dawson is a 85 year old male w/ a hx of a CABG, CAD, Hypothyroidism, presents from [facility] via EMS on 02/13/2025 for abnormal lab work. The patient is unable to tell me why he was brought to the ED. He is AO to person and place. He knows that it is January, but he does not know the year. He endorses malaise and swelling in this b/l LE that began a few days earlier. He denies f/c, headaches, dizziness, light headedness, syncope, CP, palpitations, SOB, dysuria, hematuria. He does endorse increased urinary urgency/frequency due to increased Lasix & po intake. Per the admission night charge nurse, the patient's daughter Daughter has been giving the Lasix 80mg po + Metolazone 5mg for the last 3 days. In the ED, the patient's vital signs were within normal limits. His labs were significant for a an FELISA w/ a Cr of 1.6 (baseline Cr of 1.0) the patient was given 80 mEq IV piggyback of KCl, and admitted for further management. Review of Systems Const: Reports: malaise; Denies: fever(s), chills or change in appetite Eyes: Denies: change in vision Card: Reports: edema (b/l pedal edema); Denies: chest pain, palpitations, lightheadedness or syncope Resp: Denies: dyspnea, non-productive cough or wheezing GI: Denies: abdominal pain, nausea, vomiting, diarrhea, constipation, hematochezia or melena : Denies: difficulty urinating, dysuria or hematuria Musc: Reports: other (no myalgias); Denies: joint pain Skin/Breast: Denies: rash or new lesions Neuro: Denies: headache(s) or dizziness Psych: Denies: anxiety, depression, suicidal ideation or homicidal ideation Endo: Denies: cold intolerance or heat intolerance Brad/Lymph: Reports: easy bruising and easy bleeding All/Imm: Denies: seasonal rhinorrhea or food intolerance Medications/Allergies Home Medications ?Medication ?Instructions ?Recorded ?Confirmed ?Last Taken ?Type clopidogrel 75 mg tablet 75 mg PO DAILY 01/04/25 01/11/25 01/10/25 History donepezil 10 mg tablet 10 mg PO DAILY 01/04/25 01/11/25 01/10/25 History empagliflozin 10 mg tablet 10 mg PO DAILY 01/04/25 01/11/25 01/10/25 History (Jardiance) furosemide 40 mg tablet 40 mg PO DAILY 01/04/25 01/11/25 01/10/25 History metoprolol succinate 25 mg 25 mg PO DAILY 01/04/25 01/11/25 01/10/25 History tablet,extended release 24 hr nystatin 100,000 unit/gram topical 1 applic topical DAILY PRN Skin 01/04/25 01/11/25 Unknown History ointment Irritation isosorbide mononitrate 30 mg 30 mg PO QAM 01/05/25 01/11/25 01/10/25 History tablet,extended release 24 hr nitroglycerin 0.4 mg sublingual See Rx Instructions .Route .COMPLEX 01/05/25 01/11/25 Unknown History tablet aspirin 81 mg tablet,delayed 81 mg PO DAILY #30 tabs 01/06/25 01/11/25 01/10/25 Rx release atorvastatin 80 mg tablet 80 mg PO QPM 01/11/25 01/11/25 01/10/25 History levothyroxine 100 mcg tablet 100 mcg PO QAM 01/11/25 01/11/25 01/10/25 History (Levoxyl) furosemide 40 mg tablet 40 mg PO BID #30 tabs 02/07/25 Unknown Rx spironolactone 25 mg tablet 25 mg PO DAILY #30 tabs 02/07/25 Unknown Rx Allergies Allergy/AdvReac Type Severity Reaction Status Date / Time No Known Allergies Allergy Verified 01/04/25 16:18 PFSH Acute PFSH: Medical History (Updated 02/14/25 @ 10:15 by Randi Spaulding MD) Hypothyroidism Pacemaker Melanoma Non Hodgkin's lymphoma Degenerative disc disease Atrial fibrillation Cervical radiculitis Generalized weakness HTN (hypertension) Surgical History (Updated 02/14/25 @ 01:54 by Randi Spaulding MD) Hx of CABG Social History (Updated 02/14/25 @ 01:57 by Randi Spaulding MD) Smoking and tobacco/nicotine status: former use of tobacco/nicotine Quit status (tobacco/nicotine): has quit using Former quit date comment: smoked for about 10 yrs. quit over 20yrs to 30yrs ago. Alcohol intake: current Alcohol intake frequency: few times a week Alcohol type: beer, wine and hard liquor Substance/Drug Use: never Vitals/I&O/Wt Last Vital Signs Temp 98.0 F 02/13/25 16:15 Pulse 78 02/13/25 19:39 Resp 20 H 02/13/25 19:39 BP 121/78 02/13/25 19:39 Pulse Ox 98 02/13/25 19:39 O2 Del Method Room Air 02/13/25 20:26 02/13/25 02/13/25 02/14/25 14:59 22:59 06:59 Intake Total 109.0909 / 109.0909 Balance 109.0909 / 109.0909 Weight last 48 hrs Weight 104.78 kg Weight 104.825 kg Physical Exam Const: GENERAL APPEARANCE: cooperative and comfortable NUTRITIONAL APPEARANCE: overweight ORIENTATION/CONSCIOUSNESS: Yes oriented to person, Yes oriented to place and Yes oriented to time HENMT: HEAD & SCALP: normocephalic and atraumatic NOSE: Normal external nose present EXTERNAL EAR: Yes external ears normal MOUTH: Normal oral and palatal mucosa present THROAT: posterior oropharynx normal Eye: CONJUNCTIVA: Yes conjunctivae normal PUPIL: Yes Equal, round and reactive pupils present EOM: No EOM abnormal Neck/C-Spine: GENERAL: Yes normal visual inspection and Yes trachea midline THYROID: Thyroid normal CAROTIDS: No bruit CERVICAL SPINE: Yes cervical ROM normal Lymph: OTHER: no cervical or supraclavicular LAD Resp: OTHER: CTAB w/ no w/r/r Cardio: OTHER: RRR no m/r/g or clicks. 2+ radial and DP pulses. No carotid bruits auscultated b/l GI: OTHER: BS+, NT, ND, no guarding, no rigidity, no rebound tenderness, no hepatosplenomegaly. Extremity: NARRATIVE EXTREMITY EXAM: 2+ b/l LE pitting edema to the upper tibia Neuro: CRANIAL NERVES: Yes CN normal except as noted SPEECH: speech normal SENSORY EXAM: No sensory level loss detected MOTOR EXAM: 5/5 motor strength present throughout and Normal motor muscle tone present throughout Psych: APPEARANCE: Yes grossly normal ATTITUDE: Yes calm and Yes engaged ACTIVITY/MOTOR BEHAVIOR: Yes appropriate eye contact SPEECH: Yes normal speech MOOD & AFFECT: Yes euthymic mood THOUGHT PROCESS: Normal thought process present THOUGHT CONTENT: Yes Normal thought content present ATTENTION/CONCENTRATION: Yes attention grossly intact Skin: NARRATIVE SKIN EXAM: healing wound at the lateral aspect of the R. forearm, due to a fall Data 02/14/25 08:44 02/13/25 16:35 A&P Assessment and plan (1) Hypokalemia: (2) Acute kidney injury: Plan Constantin Dawson is a 85 year old male w/ a hx of a CABG, CAD, Hypothyroidism, presents from [facility] via EMS on 02/13/2025 for abnormal lab work. #Hypokalemia: s/p 80mEQ IVP in the ED. Another 80mEQ po KCl orderef for morning of 02/14 #FELISA: - US kidney ordered -Strict Is and Os. - Monitor renal fxn and avoid nephrotoxins. #Likely an Acute on chronic CHF: #Vol overload - Hold Lasix at this time in the setting of hypokalemia and FELISA, until potassium & other electrolytes are repleted. - Strict Is & Os. Start Telemonitoring. - F/u ECHO and b/l LE venous duplex US #b/l LE pitting edema - F/u b/l LE venous duplex US #He has Afib as a diagnosis. Will need to ask his family member more details about his medical hx because he is in a paced rhythm #Permanent pacemaker - Continue Telemonitoring #CABG #CAD #Moderate R. Carotid artery stenosis - He does not know how many vessel bypass that he has had. - Continue Aspirin, Plavix #HTN: - Monitor BPs. Resume Toprol XL. Held Imdur. #Hypothyroidism - Resume home meds. #Hx of NOn-Hodgkin's lymphoma currently in remission DVT ppx: Lovenox PDMP PDMP Reviewed: Not Reviewed Attestations Medical Necessity Statement*: The patient will need to be hospitalized for greater than 2 midnights for his FELISA, hypokalemia, and acute on chronic CHF. Coding Level of Care Code 64557 High Time for a total of 80 minutes, includes reviewing past or interval history, examining/interviewing patient, placing orders, counseling patient/family/other support, updating patient/family/other support, discussing plan of care with staff, communicating with other healthcare providers, documenting encounter and coordinating care Diagnoses Hypokalemia E87.6 Acute kidney injury N17.9
--- NOTE | 2025-02-14 02:25 | USR_ITS ---
PROCEDURE INFORMATION: Exam: US Duplex Lower Extremity Veins, Bilateral Exam date and time: 02/14/2025 12:47 PM Age: 85 years old Clinical indication: Edema, localized; Lower extremity, bilateral; Additional info: B/l lower extremity swelling TECHNIQUE: Imaging protocol: Real-time duplex ultrasound of the bilateral extremities with 2-D panchal scale, color Doppler flow and spectral waveform analysis including responses to compression and other maneuvers (when performed) with image documentation. Complete exam focused on the lower extremity veins. COMPARISON: No relevant prior studies available. FINDINGS: Right deep veins: Unremarkable. The common femoral, femoral, proximal profunda femoral and popliteal veins are patent without thrombus. Normal Doppler waveforms. Normal compressibility and/or augmentation response. Left deep veins: Unremarkable. The common femoral, femoral, proximal profunda femoral and popliteal veins are patent without thrombus. Normal Doppler waveforms. Normal compressibility and/or augmentation response. Superficial veins: Greater saphenous veins at the saphenofemoral junctions are patent bilaterally without thrombus. Soft tissues: Unremarkable. US/CV venous duplex [facility] [id number] IMPRESSION: No evidence of deep vein thrombosis.
[2025-02-14 07:38] VITALS: BP 111/64; PULSE 66; RESP 17; TEMP 36.7; O2SAT 96
[2025-02-14 09:54] LABS: Basophils % 0.3 %; Eosinophils # 0.1 10^3/uL (0.0-0.8); Eosinophils % 0.9 %; Hematocrit 30.3 % (37-53); Lymphocytes # 0.7 10^3/uL (0.8-4.8); Lymphocytes % 8.8 %; Mean Corpuscular HGB Conc 29.7 g/dL (30-55); Mean Corpuscular Hemoglobin 24.4 pg (27-33); Mean Corpuscular Volume 82.1 fl (82-101); Mean Platelet Volume 9.3 fL (7.4-10.4); Monocytes # 0.8 10^3/uL (0.2-0.9); Neutrophils # 6.17 10^3/uL (1.8-7.7); Neutrophils % 79.7 %; Nucleated Red Blood Cells % 0 %; Platelet Count 305 10^3/cmm (157-399); Red Blood Count 3.69 10^6/uL (3.85-5.65); Red Cell Distribution Width 17.5 % (12.1-15.1); White Blood Count 7.73 10^3/uL (3.29-11.43)
--- NOTE | 2025-02-14 10:01 | USCV_ITS ---
Constantin Dawson Age: 85 Gender: M : 1940 Exam Date: 02/14/2025 12:21 Ordering Phys: Randi Spaulding MD Technologist: Newton Smith Exam Location: [facility] [place] Indication: volume overload BP: 102 / 57 HR: 68 Rhythm: Other Technical Quality: Adequate MEASUREMENTS (Male / Female) Normal Values 2D ECHO LV Diastolic Diameter PLAX 4.3 cm 4.2 - 5.9 / 3.9 - 5.3 cm IVS Diastolic Thickness 1.6 cm 0.6 - 1.0 / 0.6 - 0.9 cm IVS Systolic Thickness 1.7 cm LVPW Diastolic Thickness 2.4 cm 0.6 - 1.0 / 0.6 - 0.9 cm LVPW Systolic Thickness 2.8 cm LVOT Diameter 2.0 cm LV Ejection Fraction 2D Teich 63.9 % LV Ejection Fraction MOD 4C 59.8 % LV Ejection Fraction MOD 2C 63.1 % LV Ejection Fraction 2C AL 66.2 % LA Diameter 3.5 cm RA Systolic Volume 4C AL 61.9 ml RA Systolic Volume 4C MOD 60.9 ml LA Sys Volume AL 87.2 cm cubed LA Sys Volume Index AL 37.5 cm cubed/m squared Aorta at Sinotubular Diameter 2.0 cm IVC Diameter 2.2 cm M-MODE LA Ao Ratio MM 1.7 AV Cusp Separation MM 2.2 cm DOPPLER AV Peak Velocity 145.7 cm/s LVOT Peak Velocity 83.0 cm/s AV Area Cont Eq vti 2.0 cm squared AV Area Cont Eq pk 1.8 cm squared MV Peak Velocity 95.0 cm/s MV Area PHT 3.6 cm squared Mitral E to A Ratio 4.0 TV Peak Velocity 306.7 cm/s TR Peak Velocity 326.0 cm/s TR Peak Gradient 42.5 mmHg TR Mean Velocity 219.0 cm/s TR Mean Gradient 22.2 mmHg TR Velocity Time Integral 96.5 cm PV Peak Velocity 95.0 cm/s RV Ejection Time 0.3 s FINDINGS Left Ventricle Mild left ventricular hypertrophy. Normal left ventricular systolic function with no regional wall motion abnormalities. Left ventricular ejection fraction is estimated at 60 %. Right Ventricle Normal right ventricular size and systolic function. Right Atrium Normal right atrial size. Left Atrium Mildly increased left atrial size. Mitral Valve Mildly thickened mitral valve. Mitral annular calcification. Mild mitral valve regurgitation. Aortic Valve Mildly thickened aortic valve. No aortic valve stenosis. Tricuspid Valve Structurally normal tricuspid valve. Mild tricuspid valve regurgitation. TR max gradient 42 mmHg. Pulmonic Valve Pulmonic valve not well visualized. Mild pulmonary valve regurgitation. Pericardium No pericardial effusion. Aorta Normal size aortic root and proximal ascending aorta. IVC Mildly dilated IVC. CONCLUSIONS Mild concentric LVH. Normal left ventricular systolic function. Estimated LVEF normal 60%. Mildly dilated left atrium. Mild mitral regurgitation. Degenerative changes of mitral and aortic valve. Mild mitral and tricuspid regurgitation. Mildly elevated right heart and pulmonary pressures (PA pressures 45-50 mmHg). Trudy Sexton MD (Electronically Signed) Final Date: 14 Feb 2025 14:53 S
[2025-02-14] MEDS: potassium chloride ER 20 mEq Tablet 40 MEQ PO ×3 (10:02→11:42)
[2025-02-14] MEDS: clopidogrel 75 mg Tablet PO (10:02)
[2025-02-14] MEDS: aspirin 81 mg Chew Tablet PO (10:02)
[2025-02-14] MEDS: metoprolol succinate ER (24 HR) 25 mg Tablet PO (10:02)
[2025-02-14] MEDS: pantoprazole 40 mg SDV IVP (10:02)
[2025-02-14 10:19] LABS: Alanine Aminotransferase 15 U/L (0-41); Albumin Level 3.5 g/dL (3.5-5.2); Alkaline Phosphatase 100 U/L (40-130); Anion Gap 14.2 (5-19); Aspartate Amino Transferase 33 U/L (0-40); Blood Urea Nitrogen 26 mg/dL (8-23); Calcium 9.8 mg/dL (8.5-10.5); Carbon Dioxide 37 mmol/L (22-29); Chloride 84 mmol/L (98-107); Creatinine Clr Calc Pharmacy 40.0684; Glucose 165 mg/dL (65-115); Magnesium 2.1 mg/dL (1.7-2.3); Osmolality Calculated 284 mOsm/kg (285-295); Phosphorus 4.3 mg/dL (2.5-4.5); Sodium 133 mmol/L (136-145); Total Bilirubin 1.3 mg/dL (0.15-1.2); Total Protein 6.5 g/dL (6.6-8.7)
[2025-02-14 10:22] LABS: Potassium 2.2 mmol/L (3.5-5.1)
[2025-02-14 11:10] VITALS: BP 102/57; PULSE 70; RESP 17; TEMP 36.5; O2SAT 96
[2025-02-14 15:23] VITALS: BP 102/70; PULSE 64; RESP 17; TEMP 36.4; O2SAT 95
--- NOTE | 2025-02-14 17:46 | P.PN_ITS ---
Subjective 2 Subjective: No new complaints today. Potassium at 2.2 this morning. He was unable to tolerate the K-Phos ordered IV earlier. Medications: Reviewed: Yes Vitals/I&O/Wt Last Vital Signs Temp 97.5 F L 02/14/25 15:23 Pulse 64 02/14/25 15:23 Resp 17 02/14/25 15:23 BP 102/70 02/14/25 15:23 Pulse Ox 95 02/14/25 15:23 O2 Del Method Room Air 02/14/25 15:23 02/14/25 02/14/25 02/14/25 06:59 14:59 22:59 Intake Total 589.0909 / 698.1818 480 / 480 Output Total 300 / 300 300 / 300 Balance 289.0909 / 398.1818 180 / 180 Weight last 48 hrs Weight 104.78 kg Weight 104.78 kg Weight 104.825 kg Physical Exam 2 Narrative: General: No acute distress, AO x3 HEENT: PERRLA, pupils bilaterally equal and reactive, pallors not present Chest: Normal vesicular breath sounds, no added sounds, equal good air entry bilaterally CVS: S1-S2 regular, no murmurs, no tachycardia, no gallops, no rubs Abdomen: Soft, nontender, no organomegaly, bowel sounds present Neuro: No focal deficits, no facial deformity, AO x3, power 5/5 in all limbs Data 02/14/25 08:44 02/14/25 09:44 A&P Assessment and plan (1) Hypokalemia: (2) Acute kidney injury: Plan Constantin Dawson is a 85 year old male w/ a hx of a CABG, CAD, Hypothyroidism, presents from [facility] via EMS on 02/13/2025 for abnormal lab work. #Hypokalemia: s/p 80mEQ IVP in the ED. Another 80mEQ po KCl orderef for morning of 02/14 #FELISA: - US kidney ordered -Strict Is and Os. - Monitor renal fxn and avoid nephrotoxins. #Likely an Acute on chronic CHF: #Vol overload - Hold Lasix at this time in the setting of hypokalemia and FELISA, until potassium & other electrolytes are repleted. - Strict Is & Os. Start Telemonitoring. - F/u ECHO and b/l LE venous duplex US #b/l LE pitting edema - F/u b/l LE venous duplex US #He has Afib as a diagnosis. Will need to ask his family member more details about his medical hx because he is in a paced rhythm #Permanent pacemaker - Continue Telemonitoring #CABG #CAD #Moderate R. Carotid artery stenosis - He does not know how many vessel bypass that he has had. - Continue Aspirin, Plavix #HTN: - Monitor BPs. Resume Toprol XL. Held Imdur. #Hypothyroidism - Resume home meds. #Hx of NOn-Hodgkin's lymphoma currently in remission DVT ppx: Lovenox February 14, 2025 Continue to hold diuretics today. Patient has mild lower extremity swelling but overall saturating 95% on room air. Clinically appearing to be euvolemic. Potassium at 2.2, repleted p.o. as patient was unable to tolerate IV K-Phos. Will repeat this evening. Noted elevated troponins with mild delta at 6-hour. He does not have any current chest pain. Echocardiogram taken today shows normal LVEF of 60%, normal left ventricular systolic function. No obvious regional wall motion abnormalities. Given that patient is chest pain-free and echocardiogram is normal, low suspicion for ACS at this time. Likely that elevated troponins may be related to recent CHF exacerbation. Discussed the case extensively with patient's daughter and gave the option to perform a stress test tomorrow versus since patient is asymptomatic, this could be performed in follow-up with patient's regular raise miner who is Dr. Otoole at [facility]. Patient's daughter would like to follow-up with regular raise miner and discuss further testing if indicated. Repeat potassium this afternoon. Once potassium is close to 3.5, will aim to discharge on oral supplementation and lower the dose of Lasix. Daughter reports that he was recommended to increase dose of Lasix and add metolazone for short term of 3 days and then go back to regular dose of Lasix 40 mg p.o. daily. We will attempt to resume his normal dose of Lasix at discharge if creatinine permits PDMP PDMP Reviewed: Not Reviewed Attestations 2 Medical Necessity Statement*: Continued supplementation of potassium is indicated. Coding Level of Care Code Acute Code for [facility] Diagnoses Hypokalemia E87.6 Acute kidney injury N17.9
[2025-02-14 18:25] LABS: Alanine Aminotransferase 16 U/L (0-41); Albumin Level 3.6 g/dL (3.5-5.2); Alkaline Phosphatase 98 U/L (40-130); Anion Gap 16.9 (5-19); Aspartate Amino Transferase 33 U/L (0-40); Blood Urea Nitrogen 26 mg/dL (8-23); Calcium 9.5 mg/dL (8.5-10.5); Carbon Dioxide 34 mmol/L (22-29); Chloride 88 mmol/L (98-107); Creatinine Clr Calc Pharmacy 42.7396; Globulin 2.6 g/dL (1.3-4.6); Glucose 149 mg/dL (65-115); Osmolality Calculated 290 mOsm/kg (285-295); Sodium 136 mmol/L (136-145); Total Bilirubin 1.1 mg/dL (0.15-1.2); Total Protein 6.2 g/dL (6.6-8.7)
[2025-02-14 18:30] LABS: Potassium 2.9 mmol/L (3.5-5.1)
[2025-02-14 19:39] VITALS: BP 117/74; PULSE 83; RESP 16; TEMP 36.8; O2SAT 95
[2025-02-14] MEDS: sennosides 8.6 mg Tablet 17.2 MG PO (20:24)
[2025-02-14] MEDS: enoxaparin 40 mg/0.4 mL Syringe SUBCUT (20:24)
[2025-02-14] MEDS: donepezil 5 MG Tablet 10 MG PO (20:24)
[2025-02-14] MEDS: potassium chloride ER 20 mEq Tablet 60 MEQ PO (22:51)
[2025-02-14 23:58] VITALS: BP 101/64; PULSE 66; RESP 18; TEMP 36.5; O2SAT 93
[2025-02-15 03:43] LABS: Basophils % 0.2 %; Eosinophils # 0.3 10^3/uL (0.0-0.8); Eosinophils % 3.3 %; Hematocrit 29.4 % (37-53); Lymphocytes # 1.1 10^3/uL (0.8-4.8); Lymphocytes % 12.2 %; Mean Corpuscular HGB Conc 30.3 g/dL (30-55); Mean Corpuscular Hemoglobin 24.9 pg (27-33); Mean Corpuscular Volume 82.1 fl (82-101); Mean Platelet Volume 9.4 fL (7.4-10.4); Monocytes # 1.1 10^3/uL (0.2-0.9); Monocytes % 12.1 %; Neutrophils # 6.32 10^3/uL (1.8-7.7); Neutrophils % 71.9 %; Nucleated Red Blood Cells % 0 %; Platelet Count 295 10^3/cmm (157-399); Red Blood Count 3.58 10^6/uL (3.85-5.65); Red Cell Distribution Width 17.6 % (12.1-15.1); White Blood Count 8.79 10^3/uL (3.29-11.43)
[2025-02-15 03:56] VITALS: BP 110/60; PULSE 60; RESP 16; TEMP 36.4; O2SAT 95
[2025-02-15 04:05] LABS: Alanine Aminotransferase 15 U/L (0-41); Albumin Level 3.5 g/dL (3.5-5.2); Alkaline Phosphatase 102 U/L (40-130); Aspartate Amino Transferase 32 U/L (0-40); Blood Urea Nitrogen 27 mg/dL (8-23); Calcium 9.7 mg/dL (8.5-10.5); Carbon Dioxide 36 mmol/L (22-29); Chloride 88 mmol/L (98-107); Creatinine Clr Calc Pharmacy 40.9767; Globulin 2.7 g/dL (1.3-4.6); Glucose 102 mg/dL (65-115); Magnesium 2.2 mg/dL (1.7-2.3); Osmolality Calculated 285 mOsm/kg (285-295); Sodium 135 mmol/L (136-145); Total Protein 6.2 g/dL (6.6-8.7)
[2025-02-15] MEDS: levothyroxine 100 mcg Tablet PO (05:29)
[2025-02-15 08:00] VITALS: PULSE 88; TEMP 36.4; O2SAT 95
[2025-02-15] MEDS: aspirin 81 mg Chew Tablet PO (08:22)
[2025-02-15] MEDS: potassium chloride ER 20 mEq Tablet 40 MEQ PO (08:22)
[2025-02-15] MEDS: metoprolol succinate ER (24 HR) 25 mg Tablet PO (08:22)
[2025-02-15] MEDS: clopidogrel 75 mg Tablet PO (08:22)
[2025-02-15] MEDS: pantoprazole 40 mg SDV IVP (08:23)
[2025-02-15] MEDS: potassium chloride ER 20 mEq Tablet 60 MEQ PO (09:09)
--- NOTE | 2025-02-15 09:25 | PC.NURSE ---
D/C pending 12:00 labs. Awaiting results of K+.
--- NOTE | 2025-02-15 10:23 | PC.CHAP ---
Pastoral Care Encounter/Spiritual Assessment Type of Contact [] Declined infantry unit leader visit [] Patient/Family/Request visit [] Outpatient visit [] Follow-up visit [] Physician referral [] Code/Alert [x] Routine visit [] Staff referral [] Actively dying [] Patient sleeping [] Family support [] [] Out of room [] Palliative care [] [] Receiving care in room [] Pre-surgical visit [] Trauma [] Long length of stay [] ICU visit [] Other: Relational/Emotional Strength [] Patient feels connected with others/family/visitors/staff [] Distress [] Loneliness/isolation [] Abandonment Spirituality of Patient [x] Person of Brit [] Attends Pentecostalism of their Brit [x] Believes in Prayer [] Reads Bible or Zoroastrian materials [] There are Spiritual issues to be addressed Wallpaper Remover Steam Interventions [x] Prayer [x] Active listening [] Non-anxious presence [] Spiritual/emotional support [] Crisis/trauma care [] Spiritual counseling [] Bereavement support [] Provided bereavement packet [x] Provided Bible/devotional materials [] Provided toy/stuffed animal, coloring book to patient or family member [] Provided Communion [] Anointing/[place] [] Salvation [x] Completed spiritual assessment [] Other: Impact on Illness or Injury [] Angry [] Fearful [] Anxious [] Often cries [] Exhaustion [] Unable to work [] Unable to attend lutheran [] Unable to walk/stand [] Unable to read [] Unable to drive [] Unable to eat/drink [] Unable to sleep [] Unable to be with family [] Patient intubated [] Other: Summary Time spent with patient 10 min
[2025-02-15 11:10] VITALS: BP 127/74; PULSE 80; RESP 18; O2SAT 93
[2025-02-15 12:38] LABS: Alanine Aminotransferase 17 U/L (0-41); Albumin Level 3.9 g/dL (3.5-5.2); Alkaline Phosphatase 115 U/L (40-130); Anion Gap 15.2 (5-19); Aspartate Amino Transferase 36 U/L (0-40); Blood Urea Nitrogen 25 mg/dL (8-23); Calcium 9.7 mg/dL (8.5-10.5); Carbon Dioxide 34 mmol/L (22-29); Chloride 89 mmol/L (98-107); Creatinine Clr Calc Pharmacy 38.4156; Globulin 3.4 g/dL (1.3-4.6); Glucose 142 mg/dL (65-115); Osmolality Calculated 287 mOsm/kg (285-295); Potassium 3.2 mmol/L (3.5-5.1); Sodium 135 mmol/L (136-145); Total Bilirubin 1.2 mg/dL (0.15-1.2); Total Protein 7.3 g/dL (6.6-8.7)
[2025-02-15] MEDS: potassium chloride ER 20 mEq Tablet PO (13:10)
[2025-02-15 14:19] VITALS: BP 124/76; PULSE 82; O2SAT 94
--- NOTE | 2025-02-15 18:34 | P.DS_ITS ---
Discharge Providers Date of Admission: 02/14/25 09:38 Date of Discharge: February 15, 2025 Attending Provider at Admission: Charlee Leon MD Attending Provider at Discharge: Charlee Leon MD Primary Care Provider: Wolf Shepard DO Diagnoses at Discharge Discharge Diagnosis (1) Hypokalemia: Status: Acute (2) Acute kidney injury: Status: Acute Reason for Visit Reason for Visit: abnormal labs Hospital Course Hospital Course 85-year-old male with a past medical history of CHF, resident at [facility].currently patient had been taking increasing doses of Lasix and metolazone recently due to worsening lower extremity edema. Daughter reports that patient was taking metolazone and Lasix twice a day, this was recommended by his commutator inspector Dr. Otoole in [place]. Routine labs were checked with increased diuresis and patient was found to have FELISA and hypokalemia with K level less than 2.5. He was sent to the ER for abnormal labs. Diuretics were held for FELISA. Patient had LE edema but no Shortness of breath. At discharge lasix has been resumed at lasix 40mg po daily. K was supplemented during admission and at discharge is much improved at 3.2, He has been discharged with 20meq po kcl TID with recommendation to recheck CMP in 2 days at [facility]. He was foudn to have elevtaed troponins. No regional abnormlaities were found on his echocardiogram . He did not have any chest pain. Likely trop elevation due to CHF. Patient was offered cardiac stress test to further evaluate however he deferred this to outpatient after following up with his commutator inspector re commendations. Physical Exam Narrative: General: No acute distress, AO x3 HEENT: PERRLA, pupils bilaterally equal and reactive, pallors not present Chest: Normal vesicular breath sounds, no added sounds, equal good air entry bilaterally CVS: S1-S2 regular, no murmurs, no tachycardia, no gallops, no rubs Abdomen: Soft, nontender, no organomegaly, bowel sounds present Neuro: No focal deficits, no facial deformity, AO x3, power 5/5 in all limbs Extremities: LE pitting edema B/L Discharge Data Studies Completed and Pending Completed Studies During Hospitalization Category Date Time Status XR chest 1V portable [id number] Stat Exams 02/13/25 17:09 Completed CV. echo complete* [id number] Routine Ultrasound 02/14/25 10:01 Completed US venous duplex lower extremity bilat [CV venous Ultrasound 02/14/25 02:25 [place] [id number]] Routine Radiology Impressions Chest X-Ray 02/13/25 17:09 IMPRESSION: 1. Small bilateral pleural effusions left greater than right. 2. Cardiomegaly. 3. Left-sided pacemaker. 4. Sternotomy wires. Venous Duplex 02/14/25 02:25 IMPRESSION: No evidence of deep vein thrombosis. Laboratory Results WBC 8.79 10^3/uL (3.29-11.43) 02/15/25 02:08 RBC 3.58 10^6/uL (3.85-5.65) L 02/15/25 02:08 Hgb 8.90 g/dL (11.27-16.99) L 02/15/25 02:08 Hct 29.4 % (37-53) L 02/15/25 02:08 MCV 82.1 fl (82-101) 02/15/25 02:08 MCH 24.9 pg (27-33) L 02/15/25 02:08 MCHC 30.3 g/dL (30-55) 02/15/25 02:08 RDW 17.6 % (12.1-15.1) H 02/15/25 02:08 Plt Count 295 10^3/cmm (157-399) 02/15/25 02:08 MPV 9.4 fL (7.4-10.4) 02/15/25 02:08 Neut % (Auto) 71.9 % 02/15/25 02:08 Lymph % (Auto) 12.2 % 02/15/25 02:08 [place] % (Auto) 12.1 % 02/15/25 02:08 Eos % (Auto) 3.3 % 02/15/25 02:08 Baso % (Auto) 0.2 % 02/15/25 02:08 Neut # (Auto) 6.32 10^3/uL (1.8-7.7) 02/15/25 02:08 Lymph # (Auto) 1.1 10^3/uL (0.8-4.8) 02/15/25 02:08 [place] # (Auto) 1.1 10^3/uL (0.2-0.9) H 02/15/25 02:08 Eos # (Auto) 0.3 10^3/uL (0.0-0.8) 02/15/25 02:08 Baso # (Auto) 0.0 10^3/uL (0.0-0.1) 02/15/25 02:08 Nucleated RBC % (auto) 0 % 02/15/25 02:08 Nucleated RBCs # 0.0 /100WBC 02/15/25 02:08 Sodium 135 mmol/L (136-145) L 02/15/25 12:00 Potassium 3.2 mmol/L (3.5-5.1) L 02/15/25 12:00 Chloride 89 mmol/L (98-107) L 02/15/25 12:00 Carbon Dioxide 34 mmol/L (22-29) H 02/15/25 12:00 Anion Gap 15.2 (5-19) 02/15/25 12:00 BUN 25 mg/dL (8-23) H 02/15/25 12:00 Creatinine 1.6 mg/dL (0.7-1.2) H 02/15/25 12:00 GFR Calculation Not Reportable 02/15/25 12:00 Glucose 142 mg/dL (65-115) H 02/15/25 12:00 Calculated Osmolality 287 mOsm/kg (285-295) 02/15/25 12:00 Calcium 9.7 mg/dL (8.5-10.5) 02/15/25 12:00 Phosphorus 4.3 mg/dL (2.5-4.5) 02/14/25 09:44 Magnesium 2.2 mg/dL (1.7-2.3) 02/15/25 02:08 Total Bilirubin 1.2 mg/dL (0.15-1.2) 02/15/25 12:00 AST 36 U/L (0-40) 02/15/25 12:00 ALT 17 U/L (0-41) 02/15/25 12:00 Alkaline Phosphatase 115 U/L (40-130) 02/15/25 12:00 Troponin T Baseline 191 ng/L (0-15) H* 02/13/25 16:35 Troponin T 120 Minute 191.6 ng/L (0-15) H 02/13/25 18:27 Delta Troponin T 0.6 ABS# (0-10) 02/13/25 18:27 Troponin T Hi Sens 6Hr 207.8 ng/L (0-15) H 02/13/25 22:11 Troponin T Hi Sens 6Hr Delta 16.8 ng/L (0-12) H* 02/13/25 22:11 NT-Pro-B Natriuret Pep 5449 pg/mL (0-450) H 02/13/25 16:35 Total Protein 7.3 g/dL (6.6-8.7) 02/15/25 12:00 Albumin 3.9 g/dL (3.5-5.2) 02/15/25 12:00 Globulin 3.4 g/dL (1.3-4.6) 02/15/25 12:00 TSH Cancelled 02/14/25 09:44 Urine Color Yellow (Yellow) 02/13/25 16:23 Urine Appearance Clear (CLEAR) 02/13/25 16:23 Urine pH 7.5 (5-7) 02/13/25 16:23 Ur Specific [place] 1.008 (1.005-1.030) 02/13/25 16:23 Urine Protein 1+ (Negative) A 02/13/25 16:23 Urine Glucose (UA) 2+ (Normal) H 02/13/25 16:23 Urine Ketones Negative (Negative) 02/13/25 16:23 Urine Blood 2+ (Negative) A 02/13/25 16:23 Urine Nitrate Negative (Negative) 02/13/25 16:23 Urine Bilirubin Negative (Negative) 02/13/25 16:23 Urine Urobilinogen 1.0 mg/dL (Negative) 02/13/25 16:23 Ur Leukocyte Esterase Negative (Negative) 02/13/25 16:23 Urine RBC 3-5 /hpf (0-2) 02/13/25 16:23 Urine WBC 0-5 /hpf (0-5) 02/13/25 16:23 Ur Squamous Epith Cells 0-5 /hpf (0-5) 02/13/25 16:23 Amorphous Sediment Not Reportable 02/13/25 16:23 Urine Bacteria None seen /hpf (NONE) 02/13/25 16:23 Hyaline Casts 0.81 /lpf 02/13/25 16:23 Vitals Last Vital Signs Temp 97.5 F L 02/15/25 08:00 Pulse 82 02/15/25 14:19 Resp 18 02/15/25 11:10 BP 124/76 02/15/25 14:19 Pulse Ox 94 02/15/25 14:19 O2 Del Method Room Air 02/15/25 03:56 Discharge Plan Discharge Patient Disposition: Xfer SNF Condition: Fair Prescriptions: New potassium chloride [K-Tab] 20 mEq tablet extended release 20 meq PO TID 5 Days Qty: 15 0RF Continued donepezil 10 mg tablet 10 mg PO DAILY metoprolol succinate 25 mg tablet extended release 24 hr 25 mg PO DAILY clopidogrel 75 mg tablet 75 mg PO DAILY Jardiance 10 mg tablet 10 mg PO DAILY isosorbide mononitrate 30 mg tablet extended release 24 hr 30 mg PO QAM nitroglycerin 0.4 mg tablet, sublingual See Rx Instructions .ROUTE .COMPLEX Rx Instructions: PLACE 1 TABLET UNDER TONGUE EVERY 5 MINUTES NEEDED FOR CHEST PAIN. aspirin 81 mg Tablet,Delayed Release (Dr/Ec) 81 mg PO DAILY Qty: 30 0RF ezetimibe 10 mg tablet 10 mg PO DAILY rosuvastatin 40 mg tablet 40 mg PO BEDTIME Prevagen 1 cap PO DAILY atorvastatin 80 mg Tablet 80 mg PO QPM levothyroxine [Levoxyl] 100 mcg tablet 100 mcg PO QAM Changed furosemide 40 mg tablet 40 mg PO DAILY Qty: 30 0RF Discharge Orders: Discharge Order (Routine); Ordered 02/15/25 Ordered By: Charlee Leon Other Ambulatory Orders: Comprehensive Metabolic Panel (Routine) Timeframe: 1 Day Facility: [facility] - Location: Lab - Main Lab Ordered By: Charlee Leon Comprehensive Metabolic Panel (Routine) Timeframe: 3 Days Facility: [facility] - Location: Lab - Main Lab Ordered By: Charlee Leon Referrals: Wolf Shepard DO [Primary Care Provider] - 1-3 days Referral Note: hospital discharge follow up, needs erial potassium re check Discharge Diet: Usual diet Discharge Activity: Resume usual activity Patient Instructions: Potassium Chloride (By mouth), Hypokalemia (GEN) Activity Restrictions/Additional Instructions: check potassium every other day after discharge starting tomorrow, please get recommendations from snf physician regarding dose alteration of potassium based on serial re check Discharge Attestations Time Spent in Discharge Care*: greater than 30 min Quality Metrics Clinical Quality Measures [ No reported AMI, CVA or VTE this stay] Coding Level of Care Code Acute Code for Chg Fwd Diagnoses Hypokalemia E87.6 Acute kidney injury N17.9
== END 2025-02-15 14:20 | disposition intermediate care facility (04) | DRG 682 ==
LOC: ER 16:59 → MEDSURG 18:52
PROVIDERS: Internal Medicine; Admitting Provider Student in an Organized Health Care Education/Training Program; Emergency Provider Family Medicine; PCP Family Medicine; Visit Provider Student in an Organized Health Care Education/Training Program
DX: N17.9 Acute kidney failure, unspecified (principal); I50.33 Acute on chronic diastolic (congestive) heart failure; C85.9A Non-Hodgkin lymphoma, unspecified, in remission; E87.6 Hypokalemia; I11.0 Hypertensive heart disease with heart failure; I25.10 Atherosclerotic heart disease of native coronary artery without angina pectoris; I48.91 Unspecified atrial fibrillation; E03.9 Hypothyroidism, unspecified; I65.21 Occlusion and stenosis of right carotid artery; Z79.02 Long term (current) use of antithrombotics/antiplatelets; Z79.84 Long term (current) use of oral hypoglycemic drugs; Z79.82 Long term (current) use of aspirin; Z95.0 Presence of cardiac pacemaker; Z95.1 Presence of aortocoronary bypass graft; Z87.891 Personal history of nicotine dependence
CPT/HCPCS: 36415; 71045; 80053; 81001; 83735; 83880; 84100; 84484; 85025; 93005; 93306; 93970; 96365; 96366; 96372; 99285; G0378; J1650; J2470; J9999

== ENCOUNTER 2025-02-18 16:07 | Outpatient (CLI) | payer MEDICARE, OTHER, SELFPAY ==
[2025-02-18 17:41] LABS: Alanine Aminotransferase 17 U/L (0-41); Alkaline Phosphatase 101 U/L (40-130); Anion Gap 19.4 (5-19); Aspartate Amino Transferase 29 U/L (0-40); Blood Urea Nitrogen 28 mg/dL (8-23); Carbon Dioxide 27 mmol/L (22-29); Chloride 96 mmol/L (98-107); Globulin 2.8 g/dL (1.3-4.6); Glucose 89 mg/dL (65-115); Osmolality Calculated 293 mOsm/kg (285-295); Potassium 3.4 mmol/L (3.5-5.1); Sodium 139 mmol/L (136-145); Total Protein 6.8 g/dL (6.6-8.7)
== END 2025-02-18 16:08 | disposition home or self-care (01) ==
LOC: LAB 16:13
PROVIDERS: Absent Provider Student in an Organized Health Care Education/Training Program; PCP Family Medicine; Visit Provider Student in an Organized Health Care Education/Training Program
DX: I10 Essential (primary) hypertension (principal); E87.6 Hypokalemia
CPT/HCPCS: 80053

== ENCOUNTER 2025-03-11 08:57 | Outpatient (CLI) | payer MEDICARE, OTHER, SELFPAY ==
[2025-03-11 09:27] LABS: Anion Gap 19.4 (5-19); Blood Urea Nitrogen 15 mg/dL (8-23); Calcium 8.8 mg/dL (8.5-10.5); Carbon Dioxide 22 mmol/L (22-29); Chloride 100 mmol/L (98-107); Glucose 139 mg/dL (65-115); Osmolality Calculated 289 mOsm/kg (285-295); Potassium 3.4 mmol/L (3.5-5.1); Sodium 138 mmol/L (136-145)
== END 2025-03-11 08:58 | disposition home or self-care (01) ==
LOC: LAB 09:03
PROVIDERS: PCP Family Medicine; Visit Provider Internal Medicine
DX: I50.31 Acute diastolic (congestive) heart failure (principal)
CPT/HCPCS: 80048

== ENCOUNTER → 2025-05-19 14:11 | Outpatient (BNVA) | payer MEDICARE, OTHER, SELFPAY | PROVIDERS: PCP Family Medicine; Visit Provider Family Medicine | DX: E03.9 Hypothyroidism, unspecified (principal); N18.32 Chronic kidney disease, stage 3b | CPT/HCPCS: 80053; 80061; 84443; 85025 ==

== ENCOUNTER → 2025-06-01 07:51 | Outpatient (BNVA) | payer MEDICARE, OTHER, SELFPAY | PROVIDERS: PCP Family Medicine; Visit Provider Nurse Practitioner Family | DX: D48.5 Neoplasm of uncertain behavior of skin (principal); L30.4 Erythema intertrigo; D23.72 Other benign neoplasm of skin of left lower limb, including hip; Z08 Encounter for follow-up examination after completed treatment for malignant neoplasm; Z85.828 Personal history of other malignant neoplasm of skin; L57.0 Actinic keratosis | CPT/HCPCS: 11102; 17000; 69100; 99204 ==

== ENCOUNTER → 2025-07-06 08:51 | Outpatient (BNVA) | payer MEDICARE, OTHER, SELFPAY | PROVIDERS: PCP Family Medicine; Visit Provider Dermatology | DX: L57.0 Actinic keratosis (principal); C44.329 Squamous cell carcinoma of skin of other parts of face; D48.5 Neoplasm of uncertain behavior of skin | CPT/HCPCS: 11102; 13132; 17311; 69100; 99213 ==

== ENCOUNTER → 2025-07-07 15:04 | Outpatient (BNVA) | payer MEDICARE, OTHER, SELFPAY | PROVIDERS: PCP Family Medicine; Visit Provider Dermatology | DX: L76.21 Postprocedural hemorrhage of skin and subcutaneous tissue following a dermatologic procedure (principal) | CPT/HCPCS: 99213 ==

== ENCOUNTER → 2025-07-09 10:16 | Outpatient (BNVA) | payer MEDICARE, OTHER, SELFPAY | PROVIDERS: PCP Family Medicine; Visit Provider Dermatology | DX: Z48.817 Encounter for surgical aftercare following surgery on the skin and subcutaneous tissue (principal) | CPT/HCPCS: 99212 ==

== ENCOUNTER → 2025-07-13 11:59 | Outpatient (BNVA) | payer MEDICARE, OTHER, SELFPAY | PROVIDERS: PCP Family Medicine; Visit Provider Dermatology | DX: Z48.817 Encounter for surgical aftercare following surgery on the skin and subcutaneous tissue (principal) | CPT/HCPCS: 99212 ==

== ENCOUNTER → 2025-07-26 14:24 | Outpatient (BNVA) | payer MEDICARE, OTHER, SELFPAY | PROVIDERS: PCP Family Medicine; Visit Provider Dermatology | DX: Z48.817 Encounter for surgical aftercare following surgery on the skin and subcutaneous tissue (principal) | CPT/HCPCS: 99212 ==

== ENCOUNTER → 2025-07-30 10:37 | Outpatient (BNVA) | payer MEDICARE, OTHER, SELFPAY | PROVIDERS: PCP Family Medicine; Visit Provider Dermatology | DX: C44.41 Basal cell carcinoma of skin of scalp and neck (principal); Z48.817 Encounter for surgical aftercare following surgery on the skin and subcutaneous tissue | CPT/HCPCS: 99213 ==

== ENCOUNTER → 2025-08-06 11:44 | Outpatient (BNVA) | payer MEDICARE, OTHER, SELFPAY | PROVIDERS: PCP Family Medicine; Visit Provider Dermatology | DX: C44.41 Basal cell carcinoma of skin of scalp and neck (principal); D48.5 Neoplasm of uncertain behavior of skin; Z48.817 Encounter for surgical aftercare following surgery on the skin and subcutaneous tissue | CPT/HCPCS: 99213 ==

== ENCOUNTER → 2025-08-11 09:45 | Outpatient (BNVA) | payer MEDICARE, OTHER, SELFPAY | PROVIDERS: PCP Family Medicine; Visit Provider Dermatology | DX: C44.41 Basal cell carcinoma of skin of scalp and neck (principal); S50.812A Abrasion of left forearm, initial encounter; Z48.817 Encounter for surgical aftercare following surgery on the skin and subcutaneous tissue; D48.5 Neoplasm of uncertain behavior of skin; X58.XXXA Exposure to other specified factors, initial encounter | CPT/HCPCS: 11102; 99213 ==

== ENCOUNTER → 2025-09-07 08:59 | Outpatient (BNVA) | payer MEDICARE, OTHER, SELFPAY | PROVIDERS: PCP Family Medicine; Visit Provider Dermatology | DX: L76.21 Postprocedural hemorrhage of skin and subcutaneous tissue following a dermatologic procedure (principal); L57.0 Actinic keratosis; C44.41 Basal cell carcinoma of skin of scalp and neck; C44.02 Squamous cell carcinoma of skin of lip | CPT/HCPCS: 11642; 12032; 12052; 17311; 99213 ==

== ENCOUNTER → 2025-09-09 09:16 | Outpatient (BNVA) | payer MEDICARE, OTHER, SELFPAY | PROVIDERS: PCP Family Medicine; Visit Provider Dermatology | DX: L76.21 Postprocedural hemorrhage of skin and subcutaneous tissue following a dermatologic procedure (principal) | CPT/HCPCS: 99213 ==

== ENCOUNTER → 2025-09-10 09:58 | Outpatient (BNVA) | payer MEDICARE, OTHER, SELFPAY | PROVIDERS: PCP Family Medicine; Visit Provider Dermatology | DX: L76.21 Postprocedural hemorrhage of skin and subcutaneous tissue following a dermatologic procedure (principal) | CPT/HCPCS: 99213 ==

== ENCOUNTER → 2025-09-13 13:10 | Outpatient (BNVA) | payer MEDICARE, OTHER, SELFPAY | PROVIDERS: PCP Family Medicine; Visit Provider Dermatology | DX: L76.21 Postprocedural hemorrhage of skin and subcutaneous tissue following a dermatologic procedure (principal) | CPT/HCPCS: 99213 ==

== ENCOUNTER → 2025-09-17 11:30 | Outpatient (BNVA) | payer MEDICARE, OTHER, SELFPAY | PROVIDERS: PCP Family Medicine; Visit Provider Dermatology | DX: C44.02 Squamous cell carcinoma of skin of lip (principal); L57.0 Actinic keratosis | CPT/HCPCS: 99213 ==

== ENCOUNTER → 2025-09-20 12:01 | Outpatient (BNVA) | payer MEDICARE, OTHER, SELFPAY | PROVIDERS: PCP Family Medicine; Visit Provider Dermatology | DX: L57.0 Actinic keratosis (principal); Z48.817 Encounter for surgical aftercare following surgery on the skin and subcutaneous tissue | CPT/HCPCS: 99213 ==

== ENCOUNTER → 2025-09-24 15:26 | Outpatient (BNVA) | payer MEDICARE, OTHER, SELFPAY | PROVIDERS: PCP Family Medicine; Visit Provider Emergency Medicine | DX: J06.9 Acute upper respiratory infection, unspecified (principal) | CPT/HCPCS: 87400; 87426 ==